=== PATIENT | female | born 1975 | race Caucasian/White ===

== ENCOUNTER 2022-09-22 07:42 | Inpatient (IN) ==
[2022-09-22] MEDS ORDERED: HYDROmorphone INJ 0.5 MG/0.5 ML SYR IV STA ×2 (08:17→09:31)
[2022-09-22] MEDS ORDERED: ONDANSETRON INJ 2 MG/ML 2 ML VIAL IV STA (08:17)
[2022-09-22] MEDS ORDERED: DEXAMETHASONE SOD INJ 4 MG/ML VIAL IV STA (08:17)
[2022-09-22] MEDS ORDERED: CYCLOBENZAPRINE HCL 10 MG TAB PO STA (09:31)
--- NOTE | 2022-09-22 09:44 | Magnetic Resonance Report ---
MR lumbar spine wo con CLINICAL HISTORY: lumbar radic, perineal numbness, urinary retention TECHNIQUE: Multiplanar sequences through the lumbar spine were obtained, without intravenous contrast . Comparison: None available at the time of this dictation. FINDINGS: The alignment is anatomical. L1-L2: No significant abnormality. L2-L3: No significant abnormality. L3-L4: No significant abnormality. L4-L5: No significant abnormality. L5-S1: There is a large left-sided disc extrusion with severe left neuroforaminal stenosis. The spinal ligaments are intact, without evidence of disruption or abnormal signal intensity. The spi nal cord is normal in signal intensity and there is no evidence of cord contusion. There is no eviden ce of an extradural, intradural, extramedullary or intramedullary lesion. Atrophic appearance of the left kidney is noted. IMPRESSION: Left disc extrusion at L5-S1 with severe left neural foraminal stenosis. ACT 112: Negative or not required by law. Electronically signed by: Urban Looney M.D. 09/22/2022 9:41 AM
--- NOTE | 2022-09-22 11:15 | Emergency Department Note ---
Impression & Plan Lumbar disc herniation with radiculopathy, DM type 2 (diabetes mellitus, type 2), Acute urinary retention, Saddle anesthesia ED Provider Note CHIEF COMPLAINT: Back pain HISTORY OF PRESENT ILLNESS: This 47-year-old female patient with a history of lumbar disc herniation presents to the emergency department with complaints of left leg pain that is worse than usual with saddle anesthesia. Patient states she had an MRI done 2 months ago with [facility] and was told she has an L5-S1 disc herniation. Over the weekend her pain changed significantly and the saddle anesthesia is new. She denies any new injuries or falls. She states she had a steroid epidural injection recently that helped her pain significantly for 2 weeks. Currently it is worse than ever. She does have increased pain with ambulation, she thinks the leg is weak but is limited mostly by pain. She denies any bowel or bladder incontinence but states it was very difficult to urinate this morning. REVIEW OF SYSTEMS: A review of systems was performed with positives and pertinent negatives listed in the history of present illness. 10 systems were reviewed and are otherwise negative. ALLERGIES: see below MEDICATIONS: see below PMH: see below SOCIAL HISTORY: see below DDx: Musculoskeletal, disc herniation, fracture, metastatic disease, cord compression, discitis, sciatica, cauda equina, infection, aortic disease, renal colic, gastrointestinal, as well as other pathologies. PHYSICAL EXAM: Vital signs reviewed. General: Well-appearing 47 yo female, in significant distress. HEENT: No scleral icterus, PERRLA, neck supple. Atraumatic. Cardiovascular: Regular rate and rhythm, no extra sounds. Pulmonary: Clear to auscultation bilaterally, normal work of breathing. Abdomen: Soft, nontender, nondistended, positive bowel sounds. Musculoskeletal: Atraumatic, no peripheral edema. Neurologic: Patient awake alert and oriented x 3, speech is clear. Diminished left straight leg raise secondary to pain. Pain in the left back with right leg raise. 2+ DTRs at the patella bilaterally Skin: Warm, dry, no rash EMERGENCY DEPARTMENT COURSE/MDM: patient was evaluated and appeared to be in significant discomfort. Patient was lying on her left side with her right leg folded over top. External medical records were reviewed including MRI from the [facility]. Due to the patient's significant discomfort, she was medicated with IV Dilaudid and IV dexamethasone. Patient was given 10 mg of Flexeril. Repeat MRI of the lumbar sacral spine was performed and reveals left disc extrusion at L5-S1 with severe left neural foraminal stenosis. Due to the patient's urinary retention and saddle anesthesia, Cabrera catheter was placed. Patient's case was discussed with the hospitalist service for pain control and orthopedic spine consult. Patient was made aware of the plan and agreed. She d id receive several doses of IV Dilaudid for additional pain. She feels comfortable with the plan for admission. MONITORING: An order for cardiac monitoring was placed and the patient is noted to be in a NSR at 84 beats per minute. RADIOLOGY: see below DISPOSITION: Admission Past Med/Surg History Medical History DM type 2 (diabetes mellitus, type 2) GERD (gastroesophageal reflux disease) Surgical History History of cholecystectomy History of hysterectomy History of lumbar discectomy Family History Other Family history non-contributory Social History Smoking Status: Current every day smoker Tobacco Type: E-cigarettes / Vaping Second Hand Exposure: No; Do You Dip or Chew Tobacco: No; Tobacco Cessation Education Requested by Patient: No Hx Alcohol Use: Yes Hx Substance Use: No Preferred Language: Yi Communication Ability: Effective [employer] Required: No Beliefs That Will Affect Care: None Current Living Situation: Spouse Current Living Situation Comment: 2 kids and Other Information That Helps Us Care for You: No Feels Safe at Home: Yes Safety Concerns: Feels Safe At This Time Allergies Allergies Allergy/AdvReac Type Severity Reaction Status Date / Time betamethasone Allergy Redness of Verified 09/22/22 16:34 Skin Home Meds Home Medications Medication Instructions Recorded Confirmed atorvastatin 40 mg tablet 40 mg PO DAILY 09/22/22 09/22/22 cyclobenzaprine 5 mg tablet See Rx Instructions .Route .COMPLEX 09/22/22 09/22/22 esomeprazole magnesium 40 mg 40 mg PO DAILY 09/22/22 09/22/22 capsule,delayed release gabapentin 400 mg capsule 400 mg PO TID 09/22/22 09/22/22 ibuprofen 800 mg tablet 800 mg PO DAILY PRN Pain 09/22/22 09/22/22 metformin 500 mg tablet,extended 500 mg PO QAM 09/22/22 09/22/22 release 24 hr oxycodone-acetaminophen 5 mg-325 1 tab PO Q8H PRN Severe Pain 09/22/22 09/22/22 mg tablet (Scale Score 7-10) semaglutide 1 mg/dose (4 mg/3 mL) 1 mg subcut WK 09/22/22 09/22/22 subcutaneous pen injector (Ozempic) Results & Data (ED) Vital Signs Vital Signs - 24 hr 09/22/22 07:47 09/22/22 09:45 09/22/22 13:16 Temperature 36.7 C Temperature Source Temporal Artery Scan Pulse Rate 63 Pulse Rate [Finger] 84 96 H Respiratory Rate 20 18 20 Respiratory Effort / Characteristics Non-Labored Respiratory Depth Normal Respiratory Pattern Regular Blood Pressure 159/109 H Blood Pressure [Right Arm] 114/68 115/73 Blood Pressure Mean 125 Blood Pressure Mean [Right Arm] 83 87 Blood Pressure Position Sitting Blood Pressure Position [Right Arm] Lying Lying Pulse Oximetry 100 97 97 Oxygen Delivery Method Room Air Room Air Room Air Sepsis Recent Fever Within 48 Hours No Sepsis New/Unexplained Change in Mental Status No Sepsis Action Taken by Nursing No Action Required Home Medications Current Medication List: was personally reviewed by me Laboratory Data Attestation: I reviewed the patient's lab results. 09/22/22 08:15 09/22/22 08:15 Lab Results 09/22/22 09/22/22 09/22/22 Range/Units 08:15 08:15 13:00 WBC 7.20 (4.8-10.8) K/ul RBC 4.70 (4.20-5.40) M/uL Hgb 15.1 (12.0-16.0) g/dl Hct 41.2 (37.0-47.0) % MCV 87.7 (80.0-100.0) fL MCH 32.1 (25.0-34.0) pg MCHC 36.7 H (32.0-36.0) g/dL RDW Std Deviation 35.7 L (36.4-46.3) fL RDW Coeff of Caio 11.1 L (11.5-14.5) % Plt Count 283 (130-400) K/uL MPV 10.2 (9.4-12.4) fL Sodium 134 L (136-145) mmol/L Potassium 3.9 (3.5-5.1) mmol/L Chloride 100 (98-107) mmol/L Carbon Dioxide 27 (21-32) mmol/L Anion Gap 7 (3-11) BUN 12 (6-23) mg/dl Creatinine 0.69 (0.6-1.2) mg/dl Est Cr Clr Drug Dosing 100.6 ml/min Est GFR ( Amer) 119.3 ml/min Est GFR (Non-Af Amer) 102.9 ml/min BUN/Creatinine Ratio 17.4 (10-20) Glucose 205 H (70-99(Fasting)) mg/dl Calcium 8.9 (8.6-10.3) mg/dl SARS-CoV-2, RNA, NAAT NEGATIVE (NEGATIVE) Administered Medications Acetaminophen (Acetaminophen 500 Mg Tab) 1,000 mg PO Q8H [facility] Stop: 10/22/22 15:21 Last Admin: 09/22/22 15:37 Dose: 1,000 mg Documented By: ESE Diazepam (Diazepam 2 Mg Tablet) 2 mg PO Q8H [facility] Stop: 10/22/22 16:44 Last Admin: 09/22/22 17:46 Dose: 2 mg Documented By: ESE Docusate Sodium (Docusate Sodium 100 Mg Cap) 100 mg PO BID [facility] Stop: 10/22/22 20:59 Last Admin: 09/22/22 20:46 Dose: Not Given Documented By: EKF Gabapentin (Gabapentin 400 Mg Cap) 400 mg PO TID [facility] Stop: 10/22/22 15:21 Last Admin: 09/22/22 20:47 Dose: 400 mg Documented By: Admin: 09/22/22 17:56 Dose: 400 mg Documented By: ESE Hydromorphone HCl (Hydromorphone Inj 0.5 Mg/0.5 Ml Syr) 0.5 mg IV Q6H PRN PRN Reason: Pain (6,7,8,9,10) Stop: 10/06/22 15:21 Last Admin: 09/22/22 16:05 Dose: 0.5 mg Documented By: ESE Insulin Aspart (Insulin Aspart Per Unit Charge) 0 units SC ACHS [facility] Stop: 10/22/22 16:29 Last Admin: 09/22/22 17:50 Dose: 5 units Documented By: ESE Co-signed By: NIR Oxycodone HCl (Oxycodone Hcl Ir 5 Mg Tab (Immediate Release)) 5 mg PO Q4H PRN PRN Reason: MODERATE Pain (4,5,6) & Pre PT Stop: 10/06/22 15:21 Last Admin: 09/22/22 20:47 Dose: 5 mg Documented By: Admin: 09/22/22 15:43 Dose: 5 mg Documented By: AAJude Discontinued Medications Cyclobenzaprine HCl (Cyclobenzaprine Hcl 10 Mg Tab) 10 mg PO NOW STA Stop: 09/22/22 09:32 Last Admin: 09/22/22 10:28 Dose: 10 mg Documented By: QGV Dexamethasone (Dexamethasone Sod Inj 4 Mg/Ml Vial) 10 mg IV NOW STA Stop: 09/22/22 08:18 Last Admin: 09/22/22 08:27 Dose: 10 mg Documented By: QGV Hydromorphone HCl (Hydromorphone Inj 0.5 Mg/0.5 Ml Syr) 0.5 mg IV NOW STA Stop: 09/22/22 08:18 Last Admin: 09/22/22 08:28 Dose: 0.5 mg Documented By: QGV Hydromorphone HCl (Hydromorphone Inj 0.5 Mg/0.5 Ml Syr) 0.5 mg IV NOW STA Stop: 09/22/22 09:32 Last Admin: 09/22/22 09:38 Dose: 0.5 mg Documented By: QGV Hydromorphone HCl (Hydromorphone Inj 0.5 Mg/0.5 Ml Syr) 0.5 mg IV Q1H PRN PRN Reason: Pain Stop: 10/06/22 11:30 Last Admin: 09/22/22 13:18 Dose: 0.5 mg Documented By: QGV Ondansetron HCl (Ondansetron Inj 2 Mg/Ml 2 Ml Vial) 4 mg IV NOW STA Stop: 09/22/22 08:18 Last Admin: 09/22/22 08:28 Dose: 4 mg Documented By: QGV Imaging Data Radiologist's Impression: Lumbar Spine MRI 09/22/22 08:31 MR lumbar spine wo con CLINICAL HISTORY: lumbar radic, perineal numbness, urinary retention TECHNIQUE: Multiplanar sequences through the lumbar spine were obtained, without intravenous contrast. Comparison: None available at the time of this dictation. FINDINGS: The alignment is anatomical. L1-L2: No significant abnormality. L2-L3: No significant abnormality. L3-L4: No significant abnormality. L4-L5: No significant abnormality. L5-S1: There is a large left-sided disc extrusion with severe left neuroforaminal stenosis. The spinal ligaments are intact, without evidence of disruption or abnormal signal intensity. The spinal cord is normal in signal intensity and there is no evidence of cord contusion. There is no evidence of an extradural, intradural, extramedullary or intramedullary lesion. Atrophic appearance of the left kidney is noted. IMPRESSION: Left disc extrusion at L5-S1 with severe left neural foraminal stenosis. ACT 112: Negative or not required by law. Electronically signed by: Urban Looney M.D. 09/22/2022 9:41 AM Discharge Plan Visit Data Chief Complaint: Leg Injury/Pain Stated Complaint: has Ruptured Disk, leg pain, pain into groin ED Provider: Ana Rosa Haider Discharge Problem: Lumbar disc herniation with radiculopathy, DM type 2 (diabetes mellitus, type 2), Acute urinary retention, Saddle anesthesia Patient Disposition: Admitted As Inpatient Discharge Instructions Interventions: ED Discharge Assessment Last Done: 09/22/22 14:46
[2022-09-22] MEDS ORDERED: HYDROmorphone INJ 0.5 MG/0.5 ML SYR IV PRN (11:31)
[2022-09-22 14:18] LABS: BUN Creatinine Ratio 17.4 (10-20); Calcium 8.9 mg/dl (8.6-10.3); Creatinine Clr Calc Pharmacy 100.6 ml/min; Est GFR (African American) 119.3 ml/min; Est GFR (Non-African American) 102.9 ml/min; Potassium 3.9 mmol/L (3.5-5.1)
[2022-09-22 14:29] LABS: Hematocrit (blood only) 41.2 % (37.0-47.0); Hemoglobin 15.1 g/dl (12.0-16.0); Mean Corpuscular Hemoglobin 32.1 pg (25.0-34.0); Mean Corpuscular Hgb Conc 36.7 g/dL (32.0-36.0); Mean Corpuscular Volume 87.7 fL (80.0-100.0); Mean Platelet Volume 10.2 fL (9.4-12.4); Platelet Count 283 K/uL (130-400); RDW Coefficient of Variation 11.1 % (11.5-14.5); RDW Standard Deviation 35.7 fL (36.4-46.3)
--- NOTE | 2022-09-22 15:05 | History & Physical Report ---
Date of Service September 22, 2022 Assessment & Plan (1) Herniated disc: Plan: Admit to [facility] Patient presenting from home with reports of increasing low back pain with radiation into the left leg with associated left leg weakness and urinary retention. Lumbar spine MRI shows Left disc extrusion at L5-S1 with severe left neural foraminal stenosis. Pain control with bowel regimen. Scheduled Tylenol and Valium, as needed oxycodone and Dilaudid for breakthrough pain. Spine Ortho consult, case discussed with Dr. Lopez (2) DM type 2 (diabetes mellitus, type 2): Plan: Hgb A1c 8.2 05/2022 Hold home Ozempic and metformin, utilize NovoLog per protocol while hospitalized (3) GERD (gastroesophageal reflux disease): Plan: Continue PPI DVT PROPHYLAXIS SCDs in the event patient needs invasive procedure Patient seen in collaboration with Dr. Santiago. I spent a total of 75 minutes coordinating, documenting, and providing care for this patient excluding time spent in the performance of separately billed services. This included personally reviewing all current laboratories and imaging studies, medication reconciliation, outpatient chart review, and discussion with specialists. History of Present Illness Chief Complaint: Back pain, left leg weakness Primary Care Provider: Radha Wheat MD 47-year-old female with PMH DM type II, GERD, lumbar discectomy in 2016, and other problems listed below who presents to the ED for evaluation of back pain and left leg weakness. History obtained from patient and review of outpatient PCP and pain management records. Patient reports she fell down the stairs in February 2022 and developed low back pain. Patient states she was seeing a chiropractor for a couple of months with relief in the pain. Pain then became an relief with wound care technician and patient began seeing pain management. Patient had an MRI on 08/09/2022 that showed disc extrusion at L5-S1 compressing the descending left S1 nerve roots. Patient had a TFESI (transforaminal lumbar epidural steroid injection) on 08/22/22. Patient reports relief of pain for a couple of weeks however it is since returned. Patient reports pain radiates down the posterior aspect of her left leg. Left leg feels extremely weak to the point she goes up and down stairs in a seated position. Recently pain has been radiating to the " saddle" region and over to the right hip. A few days ago, patient noted that she was having difficulty emptying her bladder. She has not had a bowel movement in 4 days. Patient denies fevers and chills. No chest pain or shortness of breath. Denies lightheadedness, dizziness, diaphoresis, syncopal events. No abdominal pain, nausea, vomiting, diarrhea. In the ED, lumbar spine MRI shows left disc extrusion at L5-S1 with severe left neural foraminal stenosis. Patient received cyclobenzaprine, IV dexamethasone, IV Dilaudid, IV Zofran. Home Medications Medication Instructions Recorded Confirmed Type atorvastatin 40 mg tablet 40 mg PO DAILY 09/22/22 09/22/22 History cyclobenzaprine 5 mg tablet See Rx Instructions .Route .COMPLEX 09/22/22 09/22/22 History esomeprazole magnesium 40 mg 40 mg PO DAILY 09/22/22 09/22/22 History capsule,delayed release gabapentin 400 mg capsule 400 mg PO TID 09/22/22 09/22/22 History ibuprofen 800 mg tablet 800 mg PO DAILY PRN Pain 09/22/22 09/22/22 History metformin 500 mg tablet,extended 500 mg PO QAM 09/22/22 09/22/22 History release 24 hr oxycodone-acetaminophen 5 mg-325 1 tab PO Q8H PRN Severe Pain 09/22/22 09/22/22 History mg tablet (Scale Score 7-10) semaglutide 1 mg/dose (4 mg/3 mL) 1 mg subcut WK 09/22/22 09/22/22 History subcutaneous pen injector (Ozempic) Past Med/Surg History Medical History DM type 2 (diabetes mellitus, type 2) GERD (gastroesophageal reflux disease) Surgical History History of cholecystectomy History of hysterectomy History of lumbar discectomy Family History Other Family history non-contributory Social History Smoking Status: Current every day smoker Tobacco Type: E-cigarettes / Vaping Feels Safe at Home: Yes Review of Systems Review of Systems: ROS per HPI, all other systems reviewed and negative Physical Exam Constitutional: WD/WN, vitals as above Eyes: PERRL, conjunctivae normal, anicteric sclerae ENMT: external ear and nose normal, oropharynx normal Respiratory: normal respiratory effort, lungs clear to auscultation Cardiovascular: Rate/Rhythm: regular rate and regular rhythm Vessels: normal peripheral pulses Extremities: no edema Gastrointestinal (Abdomen): normal bowel sounds, soft, nontender, no hepatosplenomegaly Musculoskeletal: LLE weakness Skin: no rashes, warm and dry Neurologic: PERRL, EOMI, accommodation nl, no face palsy, no dysarthria Psychiatric: A+Ox3, euthymic affect Genitourinary: Cabrera catheter in place draining clear yellow urine. Results & Data Results & Data Vital Signs (Past 12 Hours) Vital Signs Temp Pulse Pulse Resp BP BP Pulse Ox 09/22/22 13:16 96 H 20 115/73 97 09/22/22 09:45 84 18 114/68 97 09/22/22 07:47 36.7 C 63 20 159/109 H 100 O2 Del Method 09/22/22 13:16 Room Air 09/22/22 09:45 Room Air 09/22/22 07:47 Room Air Laboratory Results Short CBC 09/22/22 Range/Units 08:15 WBC 7.20 (4.8-10.8) K/ul Hgb 15.1 (12.0-16.0) g/dl Hct 41.2 (37.0-47.0) % Plt Count 283 (130-400) K/uL BMP 09/22/22 08:15 Sodium 134 L Potassium 3.9 Chloride 100 Carbon Dioxide 27 BUN 12 Creatinine 0.69 Glucose 205 H Calcium 8.9 Diagnostic Findings Lumbar Spine MRI 09/22/22 08:31 MR lumbar spine wo con CLINICAL HISTORY: lumbar radic, perineal numbness, urinary retention TECHNIQUE: Multiplanar sequences through the lumbar spine were obtained, without intravenous contrast. Comparison: None available at the time of this dictation. FINDINGS: The alignment is anatomical. L1-L2: No significant abnormality. L2-L3: No significant abnormality. L3-L4: No significant abnormality. L4-L5: No significant abnormality. L5-S1: There is a large left-sided disc extrusion with severe left neuroforaminal stenosis. The spinal ligaments are intact, without evidence of disruption or abnormal signal intensity. The spinal cord is normal in signal intensity and there is no evidence of cord contusion. There is no evidence of an extradural, intradural, extramedullary or intramedullary lesion. Atrophic appearance of the left kidney is noted. IMPRESSION: Left disc extrusion at L5-S1 with severe left neural foraminal stenosis. ACT 112: Negative or not required by law. Electronically signed by: Urban Looney M.D. 09/22/2022 9:41 AM Code Status & VTE Plan VTE Prophylaxis Plan VTE Prophylaxis will be ordered: Yes Supervising Physician Co-Signing Physician Notes Reviewed notes, outpatient records, labs, medication, coordinating, documenting and providing care for this patient excluding time spent in the performance of separately billed services. Neuro: Awake alert, mild distress HEENT: normocephalic CV: S1/S2, +, no murmurs Resp: Air entry present bilaterally, no crackles GI: Abdomen soft non tender Musculoskeletal:left lower extremity weakness Skin: (-) rashes , (-) erythema. Psych: normal affect Laboratory Results WBC 7.20 K/ul (4.8-10.8) 09/22/22 08:15 RBC 4.70 M/uL (4.20-5.40) 09/22/22 08:15 Hgb 15.1 g/dl (12.0-16.0) 09/22/22 08:15 Hct 41.2 % (37.0-47.0) 09/22/22 08:15 MCV 87.7 fL (80.0-100.0) 09/22/22 08:15 MCH 32.1 pg (25.0-34.0) 09/22/22 08:15 MCHC 36.7 g/dL (32.0-36.0) H 09/22/22 08:15 RDW Std Deviation 35.7 fL (36.4-46.3) L 09/22/22 08:15 RDW Coeff of Caio 11.1 % (11.5-14.5) L 09/22/22 08:15 Plt Count 283 K/uL (130-400) 09/22/22 08:15 MPV 10.2 fL (9.4-12.4) 09/22/22 08:15 Sodium 134 mmol/L (136-145) L 09/22/22 08:15 Potassium 3.9 mmol/L (3.5-5.1) 09/22/22 08:15 Chloride 100 mmol/L (98-107) 09/22/22 08:15 Carbon Dioxide 27 mmol/L (21-32) 09/22/22 08:15 Anion Gap 7 (3-11) 09/22/22 08:15 BUN 12 mg/dl (6-23) 09/22/22 08:15 Creatinine 0.69 mg/dl (0.6-1.2) 09/22/22 08:15 Est Cr Clr Drug Dosing 100.6 ml/min 09/22/22 08:15 Est GFR ( Amer) 119.3 ml/min 09/22/22 08:15 Est GFR (Non-Af Amer) 102.9 ml/min 09/22/22 08:15 BUN/Creatinine Ratio 17.4 (10-20) 09/22/22 08:15 Glucose 205 mg/dl (70-99(Fasting)) H 09/22/22 08:15 Calcium 8.9 mg/dl (8.6-10.3) 09/22/22 08:15 SARS-CoV-2, RNA, NAAT NEGATIVE (NEGATIVE) 09/22/22 13:00 Impressions Lumbar Spine MRI 09/22/22 08:31 MR lumbar spine wo con CLINICAL HISTORY: lumbar radic, perineal numbness, urinary retention TECHNIQUE: Multiplanar sequences through the lumbar spine were obtained, without intravenous contrast. Comparison: None available at the time of this dictation. FINDINGS: The alignment is anatomical. L1-L2: No significant abnormality. L2-L3: No significant abnormality. L3-L4: No significant abnormality. L4-L5: No significant abnormality. L5-S1: There is a large left-sided disc extrusion with severe left neuroforaminal stenosis. The spinal ligaments are intact, without evidence of disruption or abnormal signal intensity. The spinal cord is normal in signal intensity and there is no evidence of cord contusion. There is no evidence of an extradural, intradural, extramedullary or intramedullary lesion. Atrophic appearance of the left kidney is noted. IMPRESSION: Left disc extrusion at L5-S1 with severe left neural foraminal stenosis. ACT 112: Negative or not required by law. Electronically signed by: Urban Looney M.D. 09/22/2022 9:41 AM Abnormal Labs 09/22/22 09/22/22 08:15 08:15 MCHC 36.7 H RDW Std Deviation 35.7 L RDW Coeff of Caio 11.1 L Sodium 134 L Glucose 205 H
--- NOTE | 2022-09-22 15:18 | Orthopedic Consultation ---
Date of Consultation September 22, 2022 Assessment & Plan (1) Lumbar disc herniation with radiculopathy: MRI lumbar spine demonstrates evidence of a massive disc herniation L5-S1 on the left with extension into the neuroforamen. There is marked encroachment of both the traversing and exiting nerve root on the left side. There is marked evidence of disc base collapse at this level. There is evidence of previous laminotomy defect on the right. Assessment lumbar disc herniation with herniated free fragment with radiculopathy and progressive motor deficit. Plan at this time at length bimal with the patient and her reviewing MRI personally with them and explaining possible treatment plan. In light of her severe pain progressive motor deficit surgery would be reasonable and performed in an urgent manner. Surgical require lumbar laminectomy L5-S1 with possible fusion. Risk benefits pros cons alternatives in detail. Risk include but not limited to anesthesia blindness stroke paralysis nerve damage blood loss requiring transfusion infection requiring reoperation benefits hopefully marked improvement of her radiculopathy and in time improvement of her motor and sensory deficits. This time make her n.p.o. after midnight we will plan for surgery tomorrow. History of Present Illness Reason for Consultation: Severe left leg pain with weakness History of Present Illness This is a 47-year-old female who presents with a marked plan status over the past several days. She does have a history of a lumbar laminotomy at L5-S1 the right in 2016. She done very well until this past fall when she began experiencing left sciatica. Treated managing this with exercise and care trainer. She has recently undergone an injection that did provide a few weeks of relief. Unfortunately is weak and the pain has returned in severity is intense. Involves left buttock posterior lateral left thigh below the knee into the foot. She describes total numbness in the left foot. Is marked strength deficits. The right lower extremities asymptomatic. She is struggling with urinary retention. She denies any specific trauma fall or event. Home Medications Medication Instructions Recorded Confirmed Type atorvastatin 40 mg tablet 40 mg PO DAILY 09/22/22 09/22/22 History cyclobenzaprine 5 mg tablet See Rx Instructions .Route .COMPLEX 09/22/22 09/22/22 History esomeprazole magnesium 40 mg 40 mg PO DAILY 09/22/22 09/22/22 History capsule,delayed release gabapentin 400 mg capsule 400 mg PO TID 09/22/22 09/22/22 History ibuprofen 800 mg tablet 800 mg PO DAILY PRN Pain 09/22/22 09/22/22 History metformin 500 mg tablet,extended 500 mg PO QAM 09/22/22 09/22/22 History release 24 hr oxycodone-acetaminophen 5 mg-325 1 tab PO Q8H PRN Severe Pain 09/22/22 09/22/22 History mg tablet (Scale Score 7-10) semaglutide 1 mg/dose (4 mg/3 mL) 1 mg subcut WK 09/22/22 09/22/22 History subcutaneous pen injector (Ozempic) Patient History Medical History DM type 2 (diabetes mellitus, type 2) GERD (gastroesophageal reflux disease) Surgical History History of cholecystectomy History of hysterectomy History of lumbar discectomy Family History Other Family history non-contributory Social History Smoking Status: Current every day smoker Tobacco Type: E-cigarettes / Vaping Feels Safe at Home: Yes Physical Exam Physical Exam: Exam patient is most comfortable in the position. She is cooperative however. She exhibits tension signs straight leg raising on the left negative on the right. She has marked strength deficits at a 3/5 left dorsiflexion extensor houses longus compared to 5/5 on the right. Quadriceps are symmetric. There is definite sensory deficits to the left lower extremity compared to the right. DTR reflexes markedly diminished. Results & Data Vital Signs (Past 12 Hours) Vital Signs Temp Pulse Pulse Resp BP BP Pulse Ox 09/22/22 13:16 96 H 20 115/73 97 09/22/22 09:45 84 18 114/68 97 09/22/22 07:47 36.7 C 63 20 159/109 H 100 O2 Del Method 09/22/22 13:16 Room Air 09/22/22 09:45 Room Air 09/22/22 07:47 Room Air
[2022-09-22] MEDS ORDERED: CARBOHYDRATES FOR HYPOGLYCEMIA PO PRN (15:22)
[2022-09-22] MEDS ORDERED: GLUCOSE 40% GEL 15 GM TUBE PO PRN (15:22)
[2022-09-22] MEDS ORDERED: GLUCOSE 10 TAB/TUBE PO PRN (15:22)
[2022-09-22] MEDS ORDERED: GLUCAGON FOR INJ 1 MG VIAL SQ PRN (15:22)
[2022-09-22] MEDS ORDERED: DEXTROSE 50% 50 ML SYRINGE IV PRN (15:22)
[2022-09-22] MEDS ORDERED: ONDANSETRON INJ 2 MG/ML 2 ML VIAL IV PRN (15:22)
[2022-09-22] MEDS: ACETAMINOPHEN 500 MG TAB PO SCH (15:37)
[2022-09-22] MEDS: oxyCODONE HCL IR 5 MG TAB (IMMEDIATE RELEASE) PO PRN ×2 (15:43→20:47)
[2022-09-22] MEDS: HYDROmorphone INJ 0.5 MG/0.5 ML SYR IV PRN ×2 (16:05→22:02)
[2022-09-22] MEDS: diazePAM 2 MG TABLET PO SCH (17:46)
[2022-09-22] MEDS: INSULIN ASPART PER UNIT CHARGE SC SCH ×2 (17:50→22:11)
[2022-09-22] MEDS: GABAPENTIN 400 MG CAP PO SCH ×2 (17:56→20:47)
[2022-09-22] MEDS: DOCUSATE SODIUM 100 MG CAP PO SCH (20:46)
--- NOTE | 2022-09-22 20:46 | XRay Report ---
SINGLE VIEW CHEST CLINICAL HISTORY: Preoperative examination FINDINGS: An AP, portable, semierect chest radiograph is compared to study dated 01/19/2022. The cardio mediastinal silhouette is unremarkable. The lungs and pleural spaces are clear. No pneumothorax is se en. The bony thorax is grossly intact. Cholecystectomy clips are seen in the right upper quadrant. IMPRESSION: No active disease in the chest. ACT 112: Negative or not required by law. Electronically signed by: Jose Weber M.D. 09/22/2022 8:44 PM
[2022-09-23] MEDS: ACETAMINOPHEN 500 MG TAB PO SCH ×3 (00:18→16:37)
[2022-09-23] MEDS: diazePAM 2 MG TABLET PO SCH ×3 (00:18→16:48)
[2022-09-23] MEDS: oxyCODONE HCL IR 5 MG TAB (IMMEDIATE RELEASE) PO PRN ×3 (03:00→21:36)
[2022-09-23] MEDS: HYDROmorphone INJ 0.5 MG/0.5 ML SYR IV PRN (04:23)
[2022-09-23] MEDS ORDERED: oxyCODONE HCL IR 5 MG TAB (IMMEDIATE RELEASE) PO PRN ×2 (06:30→14:29)
[2022-09-23] MEDS ORDERED: oxyCODONE HCL IR 5 MG TAB (IMMEDIATE RELEASE) PO STA (06:31)
[2022-09-23] MEDS ORDERED: HYDROmorphone INJ 0.5 MG/0.5 ML SYR IV PRN ×2 (06:31→16:27)
[2022-09-23] MEDS ORDERED: NSS + 20MEQ KCL 20 MEQ/1,000 ML BAG IV ONE (06:33)
[2022-09-23] MEDS: HYDROmorphone INJ 0.5 MG/0.5 ML SYR IV STA ×2 (06:40→07:08)
[2022-09-23] MEDS ORDERED: Nursing to Pharmacy Communication SCH ×2 (07:00→16:45)
[2022-09-23] MEDS: ATORVASTATIN 40 MG TAB PO SCH (08:19)
[2022-09-23] MEDS: GABAPENTIN 400 MG CAP PO SCH ×3 (08:19→21:36)
[2022-09-23] MEDS: PANTOprazole 40 MG TAB PO SCH (08:19)
[2022-09-23] MEDS: DOCUSATE SODIUM 100 MG CAP PO SCH ×2 (08:20→21:37)
[2022-09-23] MEDS: INSULIN ASPART PER UNIT CHARGE SC SCH ×4 (08:21→21:46)
[2022-09-23 08:33] LABS: Hematocrit (blood only) 38.6 % (37.0-47.0); Hemoglobin 14.3 g/dl (12.0-16.0); Mean Corpuscular Hemoglobin 32.4 pg (25.0-34.0); Mean Corpuscular Volume 87.5 fL (80.0-100.0); Mean Platelet Volume 9.5 fL (9.4-12.4); Platelet Count 274 K/uL (130-400); RDW Coefficient of Variation 10.9 % (11.5-14.5); Red Blood Count 4.41 M/uL (4.20-5.40); White Blood Count 12.36 K/ul (4.8-10.8)
[2022-09-23 08:45] LABS: Calcium 8.5 mg/dl (8.6-10.3); Creatinine Clr Calc Pharmacy 133.5 ml/min; Est GFR (African American) 130.9 ml/min; Potassium 3.9 mmol/L (3.5-5.1)
--- NOTE | 2022-09-23 08:51 | Hospitalist Progress Note ---
Date of Service September 23, 2022 Assessment & Plan (1) Herniated disc: Plan: Admit to [facility] Patient presenting from home with reports of increasing low back pain with radiation into the left leg with associated left leg weakness and urinary retention. Lumbar spine MRI shows Left disc extrusion at L5-S1 with severe left neural foraminal stenosis. Pain control with bowel regimen. Scheduled Tylenol and Valium, as needed oxycodone and Dilaudid for breakthrough pain. Spine Ortho consult, case discussed with Dr. Lopez (2) DM type 2 (diabetes mellitus, type 2): Plan: Hgb A1c 8.2 05/2022 Hold home Ozempic and metformin, utilize NovoLog per protocol while hospitalized (3) GERD (gastroesophageal reflux disease): Plan: Continue PPI DVT PROPHYLAXIS SCDs in the event patient needs invasive procedure Patient seen in collaboration with Dr. Santiago. I spent a total of 75 minutes coordinating, documenting, and providing care for this patient excluding time spent in the performance of separately billed services. This included personally reviewing all current laboratories and imaging studies, medication reconciliation, outpatient chart review, and discussion with specialists. Admission and Anticipated Discharge Date Admission Date: September 22, 2022 Results & Data Results & Data Vital Signs (Past 12 Hours) Vital Signs Temp Pulse Resp BP Pulse Ox O2 Del Method 09/23/22 07:22 36.8 C 85 14 120/78 97 Room Air 09/22/22 21:21 36.6 C 88 18 109/66 98 Room Air Laboratory Results Short CBC 09/22/22 09/23/22 Range/Units 08:15 07:58 WBC 7.20 12.36 H (4.8-10.8) K/ul Hgb 15.1 14.3 (12.0-16.0) g/dl Hct 41.2 38.6 (37.0-47.0) % Plt Count 283 274 (130-400) K/uL BMP 09/22/22 09/23/22 08:15 07:58 Sodium 134 L 136 Potassium 3.9 3.9 Chloride 100 103 Carbon Dioxide 27 27 BUN 12 13 Creatinine 0.69 0.52 L Glucose 205 H 169 H Calcium 8.9 8.5 L Medications Administered Current Inpatient Medications Acetaminophen (Acetaminophen 500 Mg Tab) 1,000 mg PO Q8H VERENA Stop: 10/22/22 15:21 Last Admin: 09/23/22 06:30 Dose: 1,000 mg Atorvastatin Calcium (Atorvastatin 40 Mg Tab) 40 mg PO DAILY VERENA Stop: 10/23/22 08:59 Last Admin: 09/23/22 08:19 Dose: 40 mg Dextrose (Dextrose 50% 50 Ml Syringe) 25 - 50 ml IV UD PRN; Protocol PRN Reason: Hypoglycemia Protocol Stop: 10/22/22 15:21 Diazepam (Diazepam 2 Mg Tablet) 2 mg PO Q8H VERENA Stop: 10/22/22 16:44 Last Admin: 09/23/22 08:19 Dose: 2 mg Docusate Sodium (Docusate Sodium 100 Mg Cap) 100 mg PO BID VERENA Stop: 10/22/22 20:59 Last Admin: 09/23/22 08:20 Dose: Not Given Gabapentin (Gabapentin 400 Mg Cap) 400 mg PO TID VERENA Stop: 10/22/22 15:21 Last Admin: 09/23/22 08:19 Dose: 400 mg Glucagon (Glucagon For Inj 1 Mg Vial) 1 mg SQ UD PRN; Protocol PRN Reason: Hypoglycemia Protocol Stop: 10/22/22 15:21 Glucose (Glucose 10 Tab/Tube) 4 - 8 tab PO UD PRN; Protocol PRN Reason: Hypoglycemia Treatment Stop: 10/22/22 15:21 Glucose (Glucose 40% Gel 15 Gm Tube) 15 - 30 gm PO UD PRN; Protocol PRN Reason: Hypoglycemia Protocol Stop: 10/22/22 15:21 Hydromorphone HCl (Hydromorphone Inj 0.5 Mg/0.5 Ml Syr) 0.5 mg IV Q4H PRN PRN Reason: Pain (6,7,8,9,10) Stop: 10/06/22 15:21 Potassium Chloride/Sodium Chloride (Normal Saline W/20 Meq Kcl) 20 meq in 1,000 mls @ 80 mls/hr IV .[id number] ONE; Protocol Stop: 09/23/22 19:02 Last Admin: 09/23/22 07:08 Dose: 80 mls/hr Insulin Aspart (Insulin Aspart Per Unit Charge) 0 units SC Q6 VERENA Stop: 10/23/22 06:59 Last Admin: 09/23/22 08:21 Dose: Not Given Miscellaneous (Carbohydrates For Hypoglycemia ) 15 - 30 gm PO UD PRN PRN Reason: Hypoglycemia Protocol Stop: 10/22/22 15:21 Ondansetron HCl (Ondansetron Inj 2 Mg/Ml 2 Ml Vial) 4 mg IV Q6H PRN PRN Reason: Nausea Stop: 10/22/22 15:21 Oxycodone HCl (Oxycodone Hcl Ir 5 Mg Tab (Immediate Release)) 5 - 10 mg PO QID PRN PRN Reason: Pain Stop: 10/07/22 06:29 Pantoprazole Sodium (Pantoprazole 40 Mg Tab) 40 mg PO DAILY VERENA; Protocol Stop: 10/23/22 08:59 Last Admin: 09/23/22 08:19 Dose: 40 mg Polyethylene Glycol (Polyethylene (Miralax) 17 Gm Pack) 17 gm PO DAILY VERENA Stop: 10/23/22 08:59 Last Admin: 09/23/22 08:20 Dose: Not Given
[2022-09-23] MEDS ORDERED: POLYETHYLENE (MIRALAX) 17 GM PACK PO SCH (09:00)
[2022-09-23 09:22] LABS: Estimated Average Glucose 197 mg/dl; Hemoglobin A1C 8.5 % (4.5-5.6)
[2022-09-23] MEDS ORDERED: INSULIN ASPART PER UNIT CHARGE SC SCH (12:00)
--- NOTE | 2022-09-23 12:29 | Anesthesiology Consultation ---
Date of Service September 23, 2022 Assessment & Plan Chart Review Chart Review: Acceptable Risk for Surgery and Patient NOT seen in Pre Admission Testing Consults Requested none ASA ASA2 Proposed Anesthesia Anesthesia Type: General History Surgery Operation Date: 09/23/22 13:30 Proposed Procedures p Lumbar Decompression Possible Fusion L5-S1 Spinal Cord Monitoring - Anton Lopez DO Height/Weight Height: 5 ft 8 in Weight: 70.4 kg Allergies Allergy/AdvReac Type Severity Reaction Status Date / Time betamethasone Allergy Redness of Verified 09/22/22 16:34 Skin Medications Home Medications Medication Instructions Recorded Confirmed Last Taken atorvastatin 40 mg tablet 40 mg PO DAILY 09/22/22 09/22/22 09/21/22 cyclobenzaprine 5 mg tablet See Rx Instructions .Route .COMPLEX 09/22/22 09/22/22 09/21/22 esomeprazole magnesium 40 mg 40 mg PO DAILY 09/22/22 09/22/22 09/21/22 capsule,delayed release gabapentin 400 mg capsule 400 mg PO TID 09/22/22 09/22/22 09/22/22 06:00 ibuprofen 800 mg tablet 800 mg PO DAILY PRN Pain 09/22/22 09/22/22 09/22/22 06:00 metformin 500 mg tablet,extended 500 mg PO QAM 09/22/22 09/22/22 09/21/22 release 24 hr oxycodone-acetaminophen 5 mg-325 1 tab PO Q8H PRN Severe Pain 09/22/22 09/22/22 09/22/22 mg tablet (Scale Score 7-10) semaglutide 1 mg/dose (4 mg/3 mL) 1 mg subcut WK 09/22/22 09/22/22 09/22/22 subcutaneous pen injector (Ozempic) Active Medications Generic Name Dose Route Start Last Admin Trade Name Freq PRN Reason Stop Dose Admin Acetaminophen 1,000 mg 09/22/22 15:22 09/23/22 06:30 Acetaminophen 500 Mg Tab PO 10/22/22 15:21 1,000 mg Q8H VERENA Administration Atorvastatin Calcium 40 mg 09/23/22 09:00 09/23/22 08:19 Atorvastatin 40 Mg Tab PO 10/23/22 08:59 40 mg DAILY VERENA Administration Diazepam 2 mg 09/22/22 16:45 09/23/22 08:19 Diazepam 2 Mg Tablet PO 10/22/22 16:44 2 mg Q8H VERENA Administration Docusate Sodium 100 mg 09/22/22 21:00 09/23/22 08:20 Docusate Sodium 100 Mg Cap PO 10/22/22 20:59 Not Given BID VERENA Gabapentin 400 mg 09/22/22 15:22 09/23/22 08:19 Gabapentin 400 Mg Cap PO 10/22/22 15:21 400 mg TID VERENA Administration Potassium Chloride/Sodium Chloride 20 meq in 1,000 mls @ 80 mls/hr 09/23/22 06:33 09/23/22 07:08 Normal Saline W/20 Meq Kcl IV 09/23/22 19:02 80 mls/hr .[id number] ONE Administration Protocol Insulin Aspart 0 units 09/23/22 07:00 09/23/22 08:21 Insulin Aspart Per Unit Charge SC 10/23/22 06:59 Not Given Q6 VERENA Oxycodone HCl 5 - 10 mg 09/23/22 06:30 09/23/22 11:38 Oxycodone Hcl Ir 5 Mg Tab (Immediate Release) PO 10/07/22 06:29 10 mg QID PRN Administration Pain Pantoprazole Sodium 40 mg 09/23/22 09:00 09/23/22 08:19 Pantoprazole 40 Mg Tab PO 10/23/22 08:59 40 mg DAILY VERENA Administration Protocol Polyethylene Glycol 17 gm 09/23/22 09:00 09/23/22 08:20 Polyethylene (Miralax) 17 Gm Pack PO 10/23/22 08:59 Not Given DAILY VERENA Past Medical History Medical History DM type 2 (diabetes mellitus, type 2) GERD (gastroesophageal reflux disease) Exercise / Class Metabolic Activity II 4-5 Yardwork/Stairs/Walk up hill Past Family History Family History Other Family history non-contributory Past Surgical History Surgical History History of cholecystectomy History of hysterectomy History of lumbar discectomy Past Anesthesia History No Hx of Anesthesia Complications and No Family Hx of Anesthesia Complications History of PONV No Hx of PONV and No Hx of Motion Sickness Social History Smoking Status: Current every day smoker tobacco type: e-cigarettes Do You Dip or Chew Tobacco: No Hx Alcohol Use: Yes alcohol intake frequency: holidays/special occasions only Hx Substance Use: No Physical Exam Vital Signs Last Vital Signs Temp 36.8 C 09/23/22 07:22 Pulse 85 09/23/22 07:22 Resp 14 09/23/22 07:22 BP 120/78 09/23/22 07:22 Pulse Ox 97 09/23/22 07:22 O2 Del Method Room Air 09/23/22 07:22 Testing Laboratory Results 09/23/22 07:58 09/23/22 07:58 Hemoglobin A1c 8.5 % (4.5-5.6) H 09/23/22 07:58 09/23/22 09/23/22 12:06 07:54 POC Glucose 158 H 164 H Electrocardiogram Findings: + NSR @ (@ 83;? anterior infarct,age ?) Chest X-Ray Date: 09/22/22 Findings: + NAD
[2022-09-23] MEDS ORDERED: NEOSTIGMINE METHYLSULFATE 1 MG/ML 10ML VIAL ONE (12:35)
[2022-09-23] MEDS ORDERED: LIDOCAINE 2% 2 ML VIAL/AMP(20MG/ML) INFIL ONE (12:35)
[2022-09-23] MEDS ORDERED: PROPOFOL IV EMULSION 10 MG/ML 20 ML VIAL IV ONE (12:35)
[2022-09-23] MEDS ORDERED: ONDANSETRON INJ 2 MG/ML 2 ML VIAL ONE ×2 (12:35→12:36)
[2022-09-23] MEDS ORDERED: GLYCOPYRROLATE 0.2 MG/ML VIAL ONE (12:35)
[2022-09-23] MEDS ORDERED: DEXAMETHASONE SOD INJ 4 MG/ML VIAL ONE (12:35)
[2022-09-23] MEDS ORDERED: MIDAZOLAM HCL 1 MG/ML 2ML VIAL ONE (12:35)
[2022-09-23] MEDS ORDERED: HYDROmorphone INJ 2 MG/ML SYR/VIAL ONE (12:36)
[2022-09-23] MEDS ORDERED: ROCURONIUM BROMIDE 10 MG/ML 5 ML VIAL IV ONE (12:36)
[2022-09-23] MEDS ORDERED: LARYING-O-JET KIT (LTA) ONE (12:36)
[2022-09-23] MEDS ORDERED: ceFAZolin 330 MG/ML 1 GM VIAL ONE ×2 (12:51→14:14)
[2022-09-23] MEDS ORDERED: BUPIVACAINE/EPINEPHRINE 0.25% 1:200,000 30 ML VIAL ONE (12:51)
[2022-09-23] MEDS ORDERED: ONDANSETRON INJ 2 MG/ML 2 ML VIAL IV PRN ×2 (13:25→16:27)
[2022-09-23] MEDS ORDERED: NALOXONE HCL 0.4 MG/1 ML VIAL/CARP IV PRN ×2 (13:25→16:27)
[2022-09-23] MEDS ORDERED: FLUMAZENIL 0.1 MG/1 ML 10 ML VIAL IV PRN (13:25)
[2022-09-23] MEDS ORDERED: PROMETHAZINE HCL 12.5 MG in SODIUM CHLORIDE 0.9% 50 ML IV PRN ×2 (13:25→16:27)
[2022-09-23] MEDS ORDERED: ePHEDrine sulfate 50 MG/ML AMP IV PRN (13:25)
[2022-09-23] MEDS ORDERED: ATROPINE SULFATE 0.1 MG/ML 10ML SYR IV PRN (13:25)
[2022-09-23] MEDS ORDERED: fentaNYL citrate PF 100 MCG/2 ML VIAL IV PRN (13:25)
--- NOTE | 2022-09-23 13:51 | History & Physical Bridge Note ---
Date of Service September 23, 2022 History & Physical Bridge Note I have examined the patient, reviewed the History & Physical and in the interval since the performance of the History & Physical I have noted the following changes of clinical significance: Patient continues to note severe left leg pain with motor deficit that has been progressive in nature over the past 48 hours as well as urinary retention and recommending emergent decompression fusion L5-S1.
[2022-09-23] MEDS ORDERED: PHARMACY GLYCEMIC MGMT CONSULT PRN (13:53)
--- NOTE | 2022-09-23 13:56 | Hospitalist Progress Note ---
Date of Service September 23, 2022 Assessment & Plan (1) Lumbar disc herniation with radiculopathy: (2) Acute urinary retention: (3) Herniated disc: (4) DM type 2 (diabetes mellitus, type 2): Plan This is a 47 yr old F who has a significant PMH of T2DM who presented to ED 2/2 increasing lower back pain with radiation to left leg with associated weakness and urinary retention Lumbar disc herniation with radiculopathy admit to med/surg pt is NPO IVF LR @ 80 while NPO pt scheduled for surgery today continue analgesic with tylenol, valium, prn Oxy IR and Dilaudid Acute urinary retention 2/[address] T2DM a1c 8.5 add lantus, novolog coverage hold metformin and ozempic consult glycemic pharmacy DVT ppx: SCDS, pt to undergo procedure FULL CODE Dispo: pt admitted, NPO for surgical procedure today PCP: Jarret Pt was seen and examined in collaboration with Dr. Ascencio, please see addendum A total of 50 was spent coordinating, documenting, and providing care for this patient excluding time spent in the performance of separately billed services. This included personally viewing all current laboratories and imaging studies, medication reconciliation, outpatient chart review, and discussion with specialists. Admission and Anticipated Discharge Date Admission Date: September 22, 2022 Supervising Physician Co-Signing Physician Notes I have seen and examined the patient and have discussed the case with the provider above. I agree with the assessment and plan as stated. 47 yo F who is very agitated and in pain this morning. She is expressing her pain is not controlled and she is receiving the same medication she was taking at home. We reviewed what she had taken and came up with her need for a higher dose of oxycodone, which was ordered. She is NPO in preparation for lumbar surgery later this afternoon. She is agitated and hot with her sweatshirt on. Physical exam is unremarkable, however, limited exam in her legs and lower back 2/2 pain. Medications and workup reviewed. Agree with plan as noted above. DO Farrah Ascencio Pt seen and examined in room 379-2. Follow up back pain. Continues to have significant back pain and cannot wait, "for this all to be over." Plan is for surgery today. Denies fever, chills, sweats, lightheadedness, dizziness, chest pain, shortness of breath, nausea, vomiting or abdominal pain. States she fell in February and ever since July has been having significant back pain radiating down left leg with weakness. She has not had a bowel movement in several days, to but does not want stool softeners until after surgery. She also was having difficulty with urination but currently has Quezada catheter in place. Review of Systems Review of Systems: All systems reviewed & are unremarkable except as noted in HPI & below Physical Exam Physical Exam: Gen: WD/WN, NAD, A&O x3 HEENT: Normocephalic, atraumatic, conjunctivae moist, sclerae anicteric, mucous membranes moist. Lung: Clear to Auscultation bilaterally, no wheezes/rales/rhonchi Heart: Regular rate, regular rhythm, no murmurs, rubs, or gallops Abdomen: Soft, NT, ND +BS x 4 Extremities: No edema Skin: Warm, no rash, negative turgor. : Quezada catheter in place Results & Data Results & Data Vital Signs (Past 12 Hours) Vital Signs Temp Pulse Resp BP Pulse Ox O2 Del Method 09/23/22 12:47 36.5 C 79 18 141/93 H 98 Room Air 09/23/22 07:22 36.8 C 85 14 120/78 97 Room Air Laboratory Results Short CBC 09/22/22 09/23/22 Range/Units 08:15 07:58 WBC 7.20 12.36 H (4.8-10.8) K/ul Hgb 15.1 14.3 (12.0-16.0) g/dl Hct 41.2 38.6 (37.0-47.0) % Plt Count 283 274 (130-400) K/uL [facility] 09/23/22 07:58 Sodium 136 Potassium 3.9 Chloride 103 Carbon Dioxide 27 BUN 13 Creatinine 0.52 L Glucose 169 H Calcium 8.5 L Medications Administered Current Inpatient Medications Acetaminophen (Acetaminophen 500 Mg Tab) 1,000 mg PO Q8H VERENA Stop: 10/22/22 15:21 Last Admin: 09/23/22 06:30 Dose: 1,000 mg Atorvastatin Calcium (Atorvastatin 40 Mg Tab) 40 mg PO DAILY VERENA Stop: 10/23/22 08:59 Last Admin: 09/23/22 08:19 Dose: 40 mg Atropine Sulfate (Atropine Sulfate 0.1 Mg/Ml 10ml Syr) 0.5 mg IV Q1M PRN PRN Reason: PACU Use-HR<40 &/or Bradycardi Stop: 09/23/22 21:25 Dextrose (Dextrose 50% 50 Ml Syringe) 25 - 50 ml IV UD PRN; Protocol PRN Reason: Hypoglycemia Protocol Stop: 10/22/22 15:21 Diazepam (Diazepam 2 Mg Tablet) 2 mg PO Q8H [facility] Stop: 10/22/22 16:44 Last Admin: 09/23/22 08:19 Dose: 2 mg Docusate Sodium (Docusate Sodium 100 Mg Cap) 100 mg PO BID [facility] Stop: 10/22/22 20:59 Last Admin: 09/23/22 08:20 Dose: Not Given Ephedrine Sulfate (Ephedrine Sulfate 50 Mg/Ml Amp) 5 mg IV Q5M PRN PRN Reason: PACU Use Only-SBP<90 mmHg Stop: 09/23/22 21:25 Fentanyl Citrate (Fentanyl Citrate Pf 100 Mcg/2 Ml Vial) 25 mcg IV Q5M PRN PRN Reason: PACU Use Only-Pain Stop: 09/23/22 21:25 Flumazenil (Flumazenil 0.1 Mg/1 Ml 10 Ml Vial) 0.2 mg IV Q2M PRN PRN Reason: PACU Use Only-Benzo Reversal Stop: 09/23/22 21:25 Gabapentin (Gabapentin 400 Mg Cap) 400 mg PO TID [facility] Stop: 10/22/22 15:21 Last Admin: 09/23/22 08:19 Dose: 400 mg Glucagon (Glucagon For Inj 1 Mg Vial) 1 mg SQ UD PRN; Protocol PRN Reason: Hypoglycemia Protocol Stop: 10/22/22 15:21 Glucose (Glucose 10 Tab/Tube) 4 - 8 tab PO UD PRN; Protocol PRN Reason: Hypoglycemia Treatment Stop: 10/22/22 15:21 Glucose (Glucose 40% Gel 15 Gm Tube) 15 - 30 gm PO UD PRN; Protocol PRN Reason: Hypoglycemia Protocol Stop: 10/22/22 15:21 Hydromorphone HCl (Hydromorphone Inj 0.5 Mg/0.5 Ml Syr) 0.5 mg IV Q4H PRN PRN Reason: Pain (6,7,8,9,10) Stop: 10/06/22 15:21 Potassium Chloride/Sodium Chloride (Normal Saline W/20 Meq Kcl) 20 meq in 1,000 mls @ 80 mls/hr IV .[id number] ONE; Protocol Stop: 09/23/22 19:02 Last Admin: 09/23/22 07:08 Dose: 80 mls/hr Promethazine HCl 12.5 mg/ (Sodium Chloride) 50.5 mls @ 204 mls/hr IV ONCE PRN PRN Reason: PACU Use Only-Nausea/Vomiting Stop: 09/23/22 21:25 Lactated Ringer's (Lr) 1,000 mls @ 80 mls/hr IV .[id number] VERENA Stop: 10/23/22 14:14 Insulin Aspart (Insulin Aspart Per Unit Charge) 0 units SC Q6 VERENA Stop: 10/23/22 06:59 Last Admin: 09/23/22 12:38 Dose: Not Given Miscellaneous (Carbohydrates For Hypoglycemia ) 15 - 30 gm PO UD PRN PRN Reason: Hypoglycemia Protocol Stop: 10/22/22 15:21 Miscellaneous Information (Pharmacy Glycemic Mgmt Consult) 1 each N/A UD PRN; Protocol PRN Reason: Consult Stop: 10/23/22 13:52 Naloxone HCl (Naloxone Hcl 0.4 Mg/1 Ml Vial/Carp) 0.2 mg IV Q2M PRN PRN Reason: PACU Use Only-Opiate Reversal Stop: 09/23/22 21:25 Ondansetron HCl (Ondansetron Inj 2 Mg/Ml 2 Ml Vial) 4 mg IV Q6H PRN PRN Reason: Nausea Stop: 10/22/22 15:21 Ondansetron HCl (Ondansetron Inj 2 Mg/Ml 2 Ml Vial) 4 mg IV ONCE PRN PRN Reason: PACU Use Only-Nausea/Vomiting Stop: 09/23/22 21:25 Oxycodone HCl (Oxycodone Hcl Ir 5 Mg Tab (Immediate Release)) 5 - 10 mg PO QID PRN PRN Reason: Pain Stop: 10/07/22 06:29 Last Admin: 09/23/22 11:38 Dose: 10 mg Pantoprazole Sodium (Pantoprazole 40 Mg Tab) 40 mg PO DAILY [facility]; Protocol Stop: 10/23/22 08:59 Last Admin: 09/23/22 08:19 Dose: 40 mg Polyethylene Glycol (Polyethylene (Miralax) 17 Gm Pack) 17 gm PO DAILY VERENA Stop: 10/23/22 08:59 Last Admin: 09/23/22 08:20 Dose: Not Given
[2022-09-23] MEDS ORDERED: LACTATED RINGER'S 1,000 ML IV SCH (14:15)
[2022-09-23] MEDS ORDERED: SUGAMMADEX SODIUM 200 MG/2 ML VIAL IV ONE (14:42)
[2022-09-23] MEDS ORDERED: FLOSEAL HEMOSTATIC MATRIX 10ML TOP ONE (14:50)
--- NOTE | 2022-09-23 15:27 | Operative Report ---
Post Operative Report Pre & Post Diagnosis Operation Date: 09/23/22 13:30 Pre-Op Diagnosis: Lumbar disc herniation with radiculopathy, motor deficit and urinary retention Post-Op Diagnosis: Same I identified the patient and participated in the time-out.: Yes Procedure Operation Date: 09/23/22 13:30 Actual Procedures #1 revision decompression with bilateral medial facetectomies and foraminotomies L5-S1. #2 posterior spinal fusion L5-S1. #3 placement posterior instrumentation L5-S1. #4 interbody fusion L5-S1. #5 placement of Spira 12 x 26 mm cage L5-S1. #6 placement locally harvested morselized autograft in the posterior gutters. #7 placement of I factor amount of the talus in the interbody space and posterior lateral gutters. Surgeon Anton Lopez, [employer] Systems Integration Specialist Mariajose Lazo Estimated Blood Loss 20 Findings Consistent with Post-Op Diagnosis Specimens None Indications This is a 47-year-old female who presents above-mentioned diagnosis in light of her symptom complex and progressive neurologic decline she is undergoing emergent decompression fusion. Description of Procedure Patient was met with identified informed consent obtained. Patient was then taken to the operative suite underwent a patient placed in a prone position the [place] table top Toan frame. All bony prominences well-padded eyes inspected to ensure no external pressure placed upon the. This point the lumbar spine was prepped and draped in a sterile fashion. With the assistance of fluoroscopy identified the L5-S1 disc space sharp by the dissection with the assistance of Bovie cautery to form down to and exposing the remaining lamina and transverse processes of L5-S1. From caudal to cephalad fashion complete laminectomy was performed including bilateral medial facetectomies foraminotomies addressing all stenosis. During the left side decompression mass amount of disc material was noted in fact dorsal to the nerve roots both the exiting L5 and traversing S1 region. Fragments wrapped around to the anterior aspect of the roots and down the canal. These fragments were removed in their entirety causing significant neural compression. Pedicle screws were then placed in L5 and S1 levels bilaterally with assistance of fluoroscopy and appropriate sized donna placed. By way of a trans foraminal approach on the left pleat discectomy was performed endplates curetted to subcortically bone and a 12 x 26 mm Spira cage with I factor tapped in position. The rods were then locked into final position bilaterally. The transverse processes of L5 and sacral ala burred to subcortical bleeding bone. I factor one of the test and locally harvested morselized autograft was placed in the posterior gutters. 15 round UNIQUE drain inserted. The incision was then closed with 1 Vicryl to fascia 2-0 Vicryl subcutaneously and 4 Monocryl for final skin closure. Steri-Strips sterile dressings placed. Patient awakened taken to PACU stable condition. Please note spinal cord monitoring was utilized at the procedure no changes noted. Lastly Mariajose Lazo was present at the entire surgery involved the patient positioning complex portions of the surgery and final skin closure. I attest to the content of the Intraoperative Record and any orders documented therein. Any exceptions are noted below.
--- NOTE | 2022-09-23 15:45 | Fluoroscopy Report ---
FL lumbar spine 2-3V CLINICAL HISTORY: L5-S1 DFI TECHNIQUE: 2 views were obtained with the C-arm in the OR with the above procedure. Total fluoroscopy time was 22.2 seconds. Radiation dose was 16.23 mGy. Comparison: Comparison is made to x-ray lumbar spine 05/22/2022 and MRI lumbar spine 09/22/2022 FINDINGS/IMPRESSION: Intraoperative images were obtained of L5-S1 discectomy and fusion. Hardware is in satisfactory appearance in final image. Please correlate with intraoperative fluoroscopy and operative report. ACT 112: Negative or not required by law. Electronically signed by: Urban Looney M.D. 09/23/2022 3:44 PM
--- NOTE | 2022-09-23 16:18 | Anesthesiology Progress Note ---
Date of Service September 23, 2022 Anesthesia Post Procedure Vital Signs Vital Signs: Temp Pulse Pulse Resp BP Pulse Ox O2 Del Method 09/23/22 16:10 36.4 C L 93 H 14 139/93 100 Room Air 09/23/22 16:00 97 H 11 L 128/90 99 Room Air 09/23/22 15:50 92 H 15 128/79 95 Room Air 09/23/22 15:41 36.2 C L 95 H 11 L 126/80 100 Oxymask 09/23/22 12:47 36.5 C 79 18 141/93 H 98 Room Air 09/23/22 07:22 36.8 C 85 14 120/78 97 Room Air 09/22/22 21:21 36.6 C 88 18 109/66 98 Room Air O2 Flow Rate 09/23/22 16:10 09/23/22 16:00 09/23/22 15:50 09/23/22 15:41 6 09/23/22 12:47 09/23/22 07:22 09/22/22 21:21 Pain Intensity Left Lower Back: Pain Intensity: 8 Back: Pain Intensity: 10 Transfer of Care Handoff Completed per policy Notes Mental Status: alert / awake / arousable Patient Amnestic to Procedure: Yes Nausea / Vomiting: adequately controlled Pain: adequately controlled Airway Patency, RR, SpO2: stable & adequate BP & HR: stable & adequate Hydration State: stable & adequate Anesthetic Complications: no major complications apparent
[2022-09-23] MEDS ORDERED: traMADol HCL 50 MG TABLET PO PRN (16:27)
[2022-09-23] MEDS ORDERED: DO NOT ADMINISTER PNEUMOCOCCAL VACCINE PRN (16:27)
[2022-09-23] MEDS ORDERED: MAGNESIUM HYDROXIDE SUSP 30 ML UDC PO PRN (16:27)
[2022-09-23] MEDS ORDERED: SOD PHOSPHATE/SOD BIPHOSPHATE ENEMA 132 ML BTL PR PRN (16:27)
[2022-09-23] MEDS ORDERED: LORazepam 2 MG/1 ML VIAL IV PRN (16:27)
[2022-09-23] MEDS ORDERED: FAMOTIDINE 20 MG TAB PO PRN (16:27)
[2022-09-23] MEDS ORDERED: diphenhydrAMINE Capsule 25 MG CAP PO PRN (16:27)
[2022-09-23] MEDS ORDERED: ALUMINUM/MAGNESIUM SUSP 30 ML UDC PO PRN (16:27)
[2022-09-23] MEDS ORDERED: ACETAMINOPHEN 500 MG TAB PO PRN (16:27)
[2022-09-23] MEDS ORDERED: HYDROmorphone INJ 1 MG/ML SYRINGE IV PRN (16:27)
[2022-09-23] MEDS ORDERED: DO NOT ADMINISTER FLU VACCINE PRN (16:27)
[2022-09-23] MEDS ORDERED: METOCLOPRAMIDE HCL INJ 5 MG/ML 2 ML VIAL IV PRN (16:27)
[2022-09-23] MEDS ORDERED: LORazepam 0.5 MG TAB PO PRN (16:27)
[2022-09-23] MEDS ORDERED: ACETAMINOPHEN 1,000 MG/100 ML VIAL IV PRN (16:27)
[2022-09-23] MEDS ORDERED: ONDANSETRON 4 MG OD TAB PO PRN (16:27)
[2022-09-23] MEDS ORDERED: bisacodyL 10 MG SUPP PR PRN (16:27)
[2022-09-23] MEDS ORDERED: hydrOXYzine HCl 25 MG TAB PO PRN (16:27)
[2022-09-23] MEDS ORDERED: LANTUS PER UNIT CHARGE SQ SCH (21:00)
[2022-09-23] MEDS: DOCUSATE SODIUM/SENNA 50/8.6MG TAB PO SCH (21:37)
[2022-09-23] MEDS: ceFAZolin 2000MG 2,000 MG/15 ML SYR IV SCH (21:38)
[2022-09-24] MEDS: diazePAM 2 MG TABLET PO SCH ×3 (00:23→17:13)
[2022-09-24] MEDS: oxyCODONE HCL IR 5 MG TAB (IMMEDIATE RELEASE) PO PRN ×3 (05:19→20:10)
[2022-09-24] MEDS: ceFAZolin 2000MG 2,000 MG/15 ML SYR IV SCH (05:20)
[2022-09-24] MEDS: POLYETHYLENE (MIRALAX) 17 GM PACK PO SCH ×3 (05:30→17:12)
--- NOTE | 2022-09-24 05:55 | Electrocardiogram Report ---
Test Reason : Blood Pressure : / mmHG Vent. Rate : 083 BPM Atrial Rate : 083 BPM P-R Int : 146 ms QRS Dur : 096 ms QT Int : 366 ms P-R-T Axes : 067 056 043 degrees QTc Int : 430 ms Normal sinus rhythm Poor R wave progression, consider anterior OR vs. lead placement vs. LVH Abnormal ECG When compared with ECG of 19-JAN-2022 12:47, Poor R wave progression is now present Confirmed by Mikel Miller ([id number]) on 09/24/2022 5:55:05 AM Referred By: REFERRED SELF Confirmed By:Mikel Miller
--- NOTE | 2022-09-24 07:48 | Pharmacy Report ---
Pharmacy Glycemic Short Note 2 - Date of Service September 24, 2022 - Glycemic Short BSG Results (Last 24 hours): 09/23/22 09/23/22 09/23/22 07:54 07:58 12:06 Glucose 169 H POC Glucose 164 H 158 H 09/23/22 09/23/22 09/23/22 12:50 15:47 17:18 Glucose POC Glucose 146 H 177 H 251 H 09/23/22 20:37 Glucose POC Glucose 202 H OUTPATIENT ANTIDIABETIC REGIMEN: * Ozempic 1 mg SC weekly (Mondays) * Metformin 500 mg PO qAM HbA1c: 8.5% (09/23/22) ASSESSMENT: * AC is a 47 year old female POD #1 s/p lumbar decompression fusion L5-S1 * Received 10 mg IV dexamethasone on 09/22 and 8 mg IV in OR yesterday (09/23) w/ no ongoing steroids ordered at this time * Pharmacy consulted yesterday postoperatively * Received 24 units of insulin (10 units of basal and 14 units of prandial/correctional bolus) * BSGs well-controlled so far today PLAN FOR INPATIENT GLYCEMIC CONTROL: * Hold outpatient oral diabetes medications * Basal insulin * 5 units SC x 1 today * Reassess in AM * Bolus insulin * NovoLog per scale ACHS or Q6hrs while NPO * Goal Range: Low 110 mg/dL - High 140 mg/dL * Correction Factor: 25 mg/dL/unit * Nutritional / Prandial insulin per carb ratio of 1 unit per 8 grams CHO consumed
[2022-09-24 08:17] LABS: Basophils # (auto) 0.03 K/uL (0-0.2); Basophils % (auto) 0.2 %; Eosinophils # (auto) 0.06 K/uL (0-0.50); Eosinophils % (auto) 0.4 %; Hematocrit (blood only) 36.4 % (37.0-47.0); Hemoglobin 13.1 g/dl (12.0-16.0); Immature Granulocytes # (auto) 0.06 K/uL (0.01-0.20); Immature Granulocytes % (auto) 0.4 %; Lymphocytes # (auto) 2.73 K/uL (1.2-3.4); Lymphocytes % (auto) 19.3 %; Mean Corpuscular Hemoglobin 32.1 pg (25.0-34.0); Mean Corpuscular Volume 89.2 fL (80.0-100.0); Mean Platelet Volume 9.6 fL (9.4-12.4); Monocytes # (auto) 0.99 K/uL (0.11-0.59); Neutrophils % (auto) 72.7 %; Platelet Count 250 K/uL (130-400); RDW Standard Deviation 35.6 fL (36.4-46.3); Red Blood Count 4.08 M/uL (4.20-5.40); White Blood Count 14.17 K/ul (4.8-10.8)
[2022-09-24 08:32] LABS: BUN Creatinine Ratio 21.4 (10-20); Calcium 8.5 mg/dl (8.6-10.3); Creatinine Clr Calc Pharmacy 99.1 ml/min; Est GFR (African American) 118.7 ml/min; Est GFR (Non-African American) 102.5 ml/min; Potassium 4.1 mmol/L (3.5-5.1)
[2022-09-24] MEDS: INSULIN ASPART PER UNIT CHARGE SC SCH ×4 (08:37→20:46)
[2022-09-24] MEDS: DOCUSATE SODIUM 100 MG CAP PO SCH ×2 (08:38→20:10)
[2022-09-24] MEDS: GABAPENTIN 400 MG CAP PO SCH ×3 (08:39→20:09)
[2022-09-24] MEDS: ATORVASTATIN 40 MG TAB PO SCH (08:39)
[2022-09-24] MEDS: PANTOprazole 40 MG TAB PO SCH (08:39)
--- NOTE | 2022-09-24 08:55 | Orthopedic Progress Note ---
Date of Service September 24, 2022 Assessment & Plan (1) Lumbar disc herniation with radiculopathy: Plan: Hailee is postoperative day 1 status post TLIF L5-S1. We will start physical therapy today. Will remove Cabrera and do a voiding trial. Maintain UNIQUE drain. Continue with pain control. Anticipate discharge home within the next couple of days. Admission and Anticipated Discharge Date Admission Date: September 22, 2022 Subjective Hailee is postoperative day 1 status post TLIF L5-S1. Left lower extremity radicular pain has resolved. She still has numbness affecting the second and third toes. UNIQUE drain output last shift was 60 cc. Cabrera catheter intact and draining. Otherwise had an uneventful evening. Review of Systems Review of Systems: All systems reviewed & are unremarkable except as noted in HPI & below Physical Exam Physical Exam: She is sitting up in bed alert and oriented x3 No acute distress Lumbar dressing is clean dry and intact with functioning UNIQUE drain Cabrera catheter intact and draining 4/5 left EHL and 4+/5 left dorsiflexion Strength intact right lower extremity Calf soft nontender bilaterally s Results & Data Vital Signs (Past 12 Hours) Vital Signs Temp Pulse Pulse Resp BP BP Pulse Ox 09/24/22 07:43 37.1 C 74 12 130/83 99 09/24/22 07:16 37.1 C 74 16 130/83 99 09/24/22 05:15 36.7 C 79 15 115/72 95 09/24/22 00:27 36.7 C 77 16 109/70 95 O2 Del Method 09/24/22 07:43 Room Air 09/24/22 07:16 Room Air 09/24/22 05:15 Room Air 09/24/22 00:27 Room Air
[2022-09-24] MEDS ORDERED: LANTUS PER UNIT CHARGE SQ ONE (12:15)
--- NOTE | 2022-09-24 13:50 | Hospitalist Progress Note ---
Date of Service September 24, 2022 Assessment & Plan (1) Lumbar disc herniation with radiculopathy: (2) Acute urinary retention: (3) Herniated disc: (4) DM type 2 (diabetes mellitus, type 2): Plan This is a 47 yr old F who has a significant PMH of T2DM who presented to ED 2/2 increasing lower back pain with radiation to left leg with associated weakness and urinary retention Lumbar disc herniation with radiculopathy s/p Revision decompression and posterior fusion L5-S1 EBL 20ml tolerating diet quezada removal today, initiate stool softeners, pt did not want to take with quezada in place pain control Acute urinary retention 2/2 above quezada removed, voiding trial T2DM a1c 8.5 add lantus, novolog coverage hold metformin and ozempic consult glycemic pharmacy - appreciate their management bsg 149 DVT ppx: SCDS FULL CODE PCP: Jarret Pt was seen and examined in collaboration with Dr. Enriquez, please see addendum A total of 45 was spent coordinating, documenting, and providing care for this patient excluding time spent in the performance of separately billed services. This included personally viewing all current laboratories and imaging studies, medication reconciliation, outpatient chart review, and discussion with specialists. Admission and Anticipated Discharge Date Admission Date: September 22, 2022 Supervising Physician Co-Signing Physician Notes Patient seen and examined Reports significant improvement since surgery Reports shooting pain down leg is resolved Reports surgical site pain Still reports left foot numbness and some weakness in left lower extremity Remove quezada and monitor urine output Continue pain regimen Bowel regimen PT/OT Agree with plans as detailed by Rand Machado PA-C Subjective Patient was seen and examined in room 379. Follow-up lumbar surgery Patient is significantly improved today. "The nerve pain has stopped." She still feels some numbness and tingling to left foot but otherwise has had significant relief. Plan is for Quezada catheter removal today and initiation of stool softeners. Denies fever, chills, sweats, lightheadedness, dizziness, chest pain, shortness breath, nausea, vomiting, abdominal pain. Tolerating diet. Review of Systems Review of Systems: All systems reviewed & are unremarkable except as noted in HPI & below Physical Exam Physical Exam: Gen: WD/WN, NAD, A&O x3 HEENT: Normocephalic, atraumatic, conjunctivae moist, sclerae anicteric, mucous membranes moist. Lung: Clear to Auscultation bilaterally, no wheezes/rales/rhonchi Heart: Regular rate, regular rhythm, no murmurs, rubs, or gallops Abdomen: Soft, NT, ND +BS x 4 Extremities: No edema, lumbar dressing CDI, UNIQUE drain with serosanguineous drainage Skin: Warm, no rash, negative turgor. : Quezada catheter in place Results & Data Results & Data Vital Signs (Past 12 Hours) Vital Signs Temp Pulse Pulse Resp BP BP Pulse Ox 09/24/22 12:07 37.3 C 77 16 118/80 99 09/24/22 07:43 37.1 C 74 12 130/83 99 09/24/22 07:16 37.1 C 74 16 130/83 99 09/24/22 05:15 36.7 C 79 15 115/72 95 O2 Del Method 09/24/22 12:07 Room Air 09/24/22 07:43 Room Air 09/24/22 07:16 Room Air 09/24/22 05:15 Room Air Laboratory Results Short CBC 09/24/22 Range/Units 07:31 WBC 14.17 H (4.8-10.8) K/ul Hgb 13.1 (12.0-16.0) g/dl Hct 36.4 L (37.0-47.0) % Plt Count 250 (130-400) K/uL BMP 09/24/22 07:31 Sodium 136 Potassium 4.1 Chloride 102 Carbon Dioxide 30 BUN 15 Creatinine 0.70 Glucose 145 H Calcium 8.5 L Medications Administered Current Inpatient Medications Acetaminophen (Acetaminophen 500 Mg Tab) 1,000 mg PO Q8H PRN PRN Reason: MILD Pain Scale 1,2,3 & Pre PT Stop: 10/23/22 16:26 Al Hydrox/Mg Hydrox/Simethicone (Aluminum/Magnesium Susp 30 Ml Udc) 30 ml PO Q6H PRN PRN Reason: Dyspepsia Stop: 10/23/22 16:26 Atorvastatin Calcium (Atorvastatin 40 Mg Tab) 40 mg PO DAILY VERENA Stop: 10/23/22 08:59 Last Admin: 09/24/22 08:39 Dose: 40 mg Bisacodyl (Bisacodyl 10 Mg Supp) 10 mg WI DAILY PRN PRN Reason: Constipation Stop: 10/23/22 16:26 Dextrose (Dextrose 50% 50 Ml Syringe) 25 - 50 ml IV UD PRN; Protocol PRN Reason: Hypoglycemia Protocol Stop: 10/22/22 15:21 Diazepam (Diazepam 2 Mg Tablet) 2 mg PO Q8H VERENA Stop: 10/22/22 16:44 Last Admin: 09/24/22 08:42 Dose: 2 mg Diphenhydramine HCl (Diphenhydramine Capsule 25 Mg Cap) 25 mg PO Q6H PRN PRN Reason: Allergic Rhinitis/Insomnia Stop: 10/23/22 16:26 Docusate Sodium (Docusate Sodium 100 Mg Cap) 100 mg PO BID VERENA Stop: 10/22/22 20:59 Last Admin: 09/24/22 08:38 Dose: Not Given Famotidine (Famotidine 20 Mg Tab) 20 mg PO Q12H PRN PRN Reason: Dyspepsia Stop: 10/23/22 16:26 Gabapentin (Gabapentin 400 Mg Cap) 400 mg PO TID VERENA Stop: 10/22/22 15:21 Last Admin: 09/24/22 13:32 Dose: 400 mg Glucagon (Glucagon For Inj 1 Mg Vial) 1 mg SQ UD PRN; Protocol PRN Reason: Hypoglycemia Protocol Stop: 10/22/22 15:21 Glucose (Glucose 10 Tab/Tube) 4 - 8 tab PO UD PRN; Protocol PRN Reason: Hypoglycemia Treatment Stop: 10/22/22 15:21 Glucose (Glucose 40% Gel 15 Gm Tube) 15 - 30 gm PO UD PRN; Protocol PRN Reason: Hypoglycemia Protocol Stop: 10/22/22 15:21 Hydromorphone HCl (Hydromorphone Inj 0.5 Mg/0.5 Ml Syr) 0.5 mg IV Q3H PRN PRN Reason: MODERATE Pain (Scale 4,5,6) & Pre PT Stop: 10/07/22 16:26 Hydromorphone HCl (Hydromorphone Inj 1 Mg/Ml Syringe) 1 mg IV Q3H PRN PRN Reason: SEVERE Pain (Scale 7,8,9,10) Stop: 10/07/22 16:26 Hydroxyzine HCl (Hydroxyzine Hcl 25 Mg Tab) 25 mg PO Q8H PRN PRN Reason: Anxiety Stop: 10/23/22 16:26 Acetaminophen (Ofirmev) 1,000 mg in 100 mls @ 400 mls/hr IV Q8H PRN PRN Reason: Pain Rating 1-3 & Pre PT Stop: 09/24/22 16:28 Promethazine HCl 12.5 mg/ (Sodium Chloride) 50.5 mls @ 202 mls/hr IV Q6H PRN PRN Reason: Nausea &/or Vomiting Stop: 10/23/22 16:26 Influenza Virus Vaccine Quadrival (Do Not Administer Flu Vaccine) 1 each N/A PRN PRN PRN Reason: Notification Stop: 10/23/22 16:26 Insulin Aspart (Insulin Aspart Per Unit Charge) 0 units SC ACHS [facility] Stop: 10/23/22 16:44 Last Admin: 09/24/22 12:45 Dose: 4 units Lorazepam (Lorazepam 0.5 Mg Tab) 0.5 mg PO Q8H PRN PRN Reason: Sedation/Anxiety Stop: 10/23/22 16:26 Lorazepam (Lorazepam 2 Mg/1 Ml Vial) 0.5 mg IV Q8H PRN PRN Reason: Sedation/Anxiety Stop: 10/23/22 16:26 Magnesium Hydroxide (Magnesium Hydroxide Susp 30 Ml Udc) 30 ml PO Q24H PRN PRN Reason: Constipation Stop: 10/23/22 16:26 Metoclopramide HCl (Metoclopramide Hcl Inj 5 Mg/Ml 2 Ml Vial) 10 mg IV Q6H PRN PRN Reason: Nausea &/or Vomiting Stop: 10/23/22 16:26 Miscellaneous (Carbohydrates For Hypoglycemia ) 15 - 30 gm PO UD PRN PRN Reason: Hypoglycemia Protocol Stop: 10/22/22 15:21 Miscellaneous Information (Pharmacy Glycemic Mgmt Consult) 1 each N/A UD PRN; Protocol PRN Reason: Consult Stop: 10/23/22 13:52 Naloxone HCl (Naloxone Hcl 0.4 Mg/1 Ml Vial/Carp) 0.1 mg IV Q5M PRN PRN Reason: Oversedation/Resp depression Stop: 10/23/22 16:26 Ondansetron HCl (Ondansetron Inj 2 Mg/Ml 2 Ml Vial) 4 mg IV Q6H PRN PRN Reason: Nausea &/or Vomiting Stop: 10/23/22 16:26 Ondansetron HCl (Ondansetron 4 Mg Od Tab) 4 mg PO Q6H PRN PRN Reason: Nausea Stop: 10/23/22 16:26 Oxycodone HCl (Oxycodone Hcl Ir 5 Mg Tab (Immediate Release)) 5 - 10 mg PO Q4H PRN PRN Reason: Pain & Pre PT Stop: 10/07/22 16:26 Last Admin: 09/24/22 11:12 Dose: 10 mg Pantoprazole Sodium (Pantoprazole 40 Mg Tab) 40 mg PO DAILY [facility]; Protocol Stop: 10/23/22 08:59 Last Admin: 09/24/22 08:39 Dose: 40 mg Pneumococcal Polyvalent Vaccine (Do Not Administer Pneumococcal Vaccine) 1 each N/A PRN PRN PRN Reason: Notification Stop: 10/23/22 16:26 Polyethylene Glycol (Polyethylene (Miralax) 17 Gm Pack) 17 gm PO Q6 VERENA Stop: 10/24/22 05:59 Last Admin: 09/24/22 12:46 Dose: 17 gm Senna/Docusate Sodium (Docusate Sodium/Senna 50/8.6mg Tab) 2 tab PO HS [facility] Stop: 10/23/22 20:59 Last Admin: 09/23/22 21:37 Dose: 2 tab Sodium Biphosphate/Sodium Phosphate (Sod Phosphate/Sod Biphosphate Enema 132 Ml Btl) 132 ml WI ONE PRN PRN Reason: Constipation Stop: 10/23/22 16:26 Tramadol HCl (Tramadol Hcl 50 Mg Tablet) 50 - 100 mg PO Q4H PRN PRN Reason: Moderate-Severe pain & Pre PT Stop: 10/23/22 16:26
[2022-09-24] MEDS: DOCUSATE SODIUM/SENNA 50/8.6MG TAB PO SCH (20:09)
[2022-09-25] MEDS: oxyCODONE HCL IR 5 MG TAB (IMMEDIATE RELEASE) PO PRN ×3 (00:19→12:24)
[2022-09-25] MEDS: POLYETHYLENE (MIRALAX) 17 GM PACK PO SCH ×2 (00:39→05:53)
[2022-09-25] MEDS: diazePAM 2 MG TABLET PO SCH ×2 (00:45→08:49)
[2022-09-25] MEDS: ATORVASTATIN 40 MG TAB PO SCH (08:39)
[2022-09-25] MEDS: GABAPENTIN 400 MG CAP PO SCH (08:39)
[2022-09-25] MEDS: PANTOprazole 40 MG TAB PO SCH (08:39)
[2022-09-25] MEDS: DOCUSATE SODIUM 100 MG CAP PO SCH (08:39)
[2022-09-25] MEDS: INSULIN ASPART PER UNIT CHARGE SC SCH (08:48)
[2022-09-25] MEDS ORDERED: LANTUS PER UNIT CHARGE SC ONE (09:00)
--- NOTE | 2022-09-25 09:55 | Pharmacy Report ---
Pharmacy Glycemic Short Note 2 - Date of Service September 25, 2022 - Glycemic Short BSG Results (Last 24 hours): 09/24/22 09/24/22 09/24/22 12:06 17:07 20:31 POC Glucose 149 H 158 H 131 H 09/25/22 09/25/22 06:09 08:11 POC Glucose 168 H 165 H OUTPATIENT ANTIDIABETIC REGIMEN: * Ozempic 1 mg SC every Thursday * Metformin 500 mg PO AM * HbA1c: 8.5% (09/23/22) ASSESSMENT: 09/25: * Hailee received 20 units of insulin yesterday, 5 units basals + 15 units bolus. BSGs were: [phone] mg/dL. * Fasting BSG was 168 mg/dL this AM, above goal. Will increase basal today. * No change to Novolog for now. 09/24: * ARELY is a 47 year old female POD #1 s/p lumbar decompression fusion L5-S1 * Received 10 mg IV dexamethasone on 09/22 and 8 mg IV in OR yesterday (09/23) w/ no ongoing steroids ordered at this time * Pharmacy consulted yesterday postoperatively * Received 24 units of insulin (10 units of basal and 14 units of prandial/correctional bolus) * BSGs well-controlled so far today PLAN FOR INPATIENT GLYCEMIC CONTROL: * Hold outpatient oral diabetes medications * Basal insulin * 8 units SC x 1 * Reassess basal regimen in the AM * Bolus insulin * NovoLog per scale ACHS or Q6hrs while NPO * Goal Range: Low 110 mg/dL - High 140 mg/dL * Correction Factor: 25 mg/dL/unit * Nutritional / Prandial insulin per carb ratio of 1 unit per 8 grams CHO consumed
[2022-09-25 11:11] LABS: Hematocrit (blood only) 39.4 % (37.0-47.0); Hemoglobin 14.2 g/dl (12.0-16.0); Mean Corpuscular Hemoglobin 32.5 pg (25.0-34.0); Mean Corpuscular Volume 90.2 fL (80.0-100.0); Mean Platelet Volume 9.5 fL (9.4-12.4); Platelet Count 236 K/uL (130-400); RDW Coefficient of Variation 11.2 % (11.5-14.5); RDW Standard Deviation 36.6 fL (36.4-46.3); Red Blood Count 4.37 M/uL (4.20-5.40); White Blood Count 10.09 K/ul (4.8-10.8)
[2022-09-25 11:29] LABS: Calcium 9.1 mg/dl (8.6-10.3); Potassium 3.5 mmol/L (3.5-5.1)
[2022-09-25 11:34] LABS: BUN Creatinine Ratio 22.2 (10-20); Creatinine Clr Calc Pharmacy 96.4 ml/min; Est GFR (African American) 114.8 ml/min
--- NOTE | 2022-09-25 12:41 | Discharge Summary ---
Date of Service September 25, 2022 Admission HPI Per Admitting Provider 47-year-old female with PMH DM type II, GERD, lumbar discectomy in 2016, and other problems listed below who presents to the ED for evaluation of back pain and left leg weakness. History obtained from patient and review of outpatient PCP and pain management records. Patient reports she fell down the stairs in February 2022 and developed low back pain. Patient states she was seeing a chiropractor for a couple of months with relief in the pain. Pain then became an relief with clinical care manager and patient began seeing pain management. Patient had an MRI on 08/09/2022 that showed disc extrusion at L5-S1 compressing the descending left S1 nerve roots. Patient had a TFESI (transforaminal lumbar epidural steroid injection) on 08/22/22. Patient reports relief of pain for a couple of weeks however it is since returned. Patient reports pain radiates down the posterior aspect of her left leg. Left leg feels extremely weak to the point she goes up and down stairs in a seated position. Recently pain has been radiating to the " saddle" region and over to the right hip. A few days ago, patient noted that she was having difficulty emptying her bladder. She has not had a bowel movement in 4 days. Patient denies fevers and chills. No chest pain or shortness of breath. Denies lightheadedness, dizziness, diaphoresis, syncopal events. No abdominal pain, nausea, vomiting, diarrhea. In the ED, lumbar spine MRI shows left disc extrusion at L5-S1 with severe left neural foraminal stenosis. Patient received cyclobenzaprine, IV dexamethasone, IV Dilaudid, IV Zofran. Admission Exam Per Admitting Provider Constitutional: WD/WN, vitals as above Eyes: PERRL, conjunctivae normal, anicteric sclerae ENMT: external ear and nose normal, oropharynx normal Respiratory: normal respiratory effort, lungs clear to auscultation Cardiovascular: Rate/Rhythm: regular rate and regular rhythm Vessels: normal peripheral pulses Extremities: no edema Gastrointestinal (Abdomen): normal bowel sounds, soft, nontender, no hepatosplenomegaly Musculoskeletal: LLE weakness Skin: no rashes, warm and dry Neurologic: PERRL, EOMI, accommodation nl, no face palsy, no dysarthria Psychiatric: A+Ox3, euthymic affect Genitourinary: Quezada catheter in place draining clear yellow urine. Principal Diagnosis Recurrent lumbar disc herniation with progressive neurologic deterioration Discharge Exam Constitutional + well hydrated; no acute distress Eyes PERRL, conjunctivae normal, anicteric sclerae ENMT external ear and nose normal, oropharynx normal Respiratory normal respiratory effort, lungs clear to auscultation Cardiovascular Rate/Rhythm: regular rate and regular rhythm S1 S2 Gastrointestinal (Abdomen) normal bowel sounds, soft, nontender, no hepatosplenomegaly Musculoskeletal Power reduced across left ankle (improved) Clean dressing over low back Neurologic PERRL, EOMI, accommodation nl, no face palsy, no dysarthria Psychiatric A+Ox3, euthymic affect Discharge Data Allergies Allergy/AdvReac Type Severity Reaction Status Date / Time betamethasone Allergy Redness of Verified 09/22/22 16:34 Skin Consultations 09/22/22 12:28 ED Decision to Admit Stat 09/22/22 15:22 Consult Orthopedic Surgery Routine Procedures Performed Operation Date: 09/23/22 13:30 Actual Procedures p Lumbar Decompression Fusion L5-S1 Spinal Cord Monitoring(Not Applicable) - Anton Lopez DO Ordered Studies 09/22/22 08:31 MR lumbar spine wo con Stat 09/23/22 13:30 FL lumbar spine 2-3V Routine Hospital Course (1) Lumbar disc herniation with radiculopathy: (2) Acute urinary retention: (3) Herniated disc: (4) DM type 2 (diabetes mellitus, type 2): Plan 47 yr old F who has a significant PMH of T2DM who presented to ED 2/2 increasing lower back pain with radiation to left leg with associated weakness and urinary retention Lumbar disc herniation with radiculopathy s/p Revision decompression and posterior fusion L5-S1 EBL 20ml Pain controlled Acute urinary retention Due to disc herniation. Required quezada This has resolved since after surgery Diabetes mellitus Hba1c 8.5 Continue home metformin and ozempic Total Time Total Time Spent Total Time Spent (In Minutes): 35 Total Time Includes: Examination of the Patient, Discharge Planning, Medication Reconciliation and Communication With Other Providers Discharge Plan Discharge Items Patient Disposition: Home - Self-Care Reason For Visit: HERNIATED DISC Discharge Diagnosis: Recurrent lumbar disc herniation with progressive neurologic deterioration Activity: As commented below Non-emergency contact: Primary Care Provider Call non-emergency contact if: you have any medication questions Follow-up/Referrals: Anton Lopez DO [Surgeon] - 10/16/22 1:00 pm Radha Wheat MD [Primary Care Provider] - 09/30/22 10:00 am (Date & Time 09/30/2022 10:00 AM Provider Umm Patel DO Department Family Practice [facility] ) Diet: Regular Addtl Attending Provider Instructions: ACTIVITY RECOMMENDATIONS: SELF CARE INSTRUCTIONS AFTER THORACIC/LUMBAR FUSIONS 1. You may walk to your tolerance. It is good exercise for your legs and back. Expect some back and intermittent leg aches and pains. 2. You may perform "counter-top" level activities (make a sandwich, aniyah with a project, etc.). 3. No bending or lifting of more than 10 pounds or back twisting of any nature (roll like a log when turning in bed). 4. You may ride in a car for 20-30 minutes at a time. No driving until after your first visit with your doctor. 5. Frequent changes of position and restricting sitting to 30 minutes at a time will help limit the amount of back spasms and stiffness you may experience. 6. You may discontinue the use of ambulatory aids (cane, crutches, etc.) once your strength and confidence allow. 7. You may fire technology instructor the shower and let water strike your incision when you arrive home at least once daily. Do not take a tub bath, sit in a hot tub or go into a swimming pool until after your first recheck in the office. SPECIAL CARE INSTRUCTIONS: VERY IMPORTANT TO READ AND REVIEW A. Your surgical incision has been closed with a cosmetic suture under the skin that will dissolve in about 6 weeks. In 14 days, you can use a pair of clean scissors and cut the suture that is left outside of the skin at the ends of your incision. 1. The small skin tapes can be removed 7 days after surgery if they have not fallen off by that point. 2. You may keep the wound open to air as much as possible to promote healing after post-op day number 5 unless told otherwise by your doctor. 3. If you think the wound looks like it is becoming infected (redness or worsening drainage) and/or you are experiencing fever, chill or worsening back pain and muscle spasms, contact the office so that we may evaluate you as soon as possible. B. Complications are uncommon, but please contact us if you have any signs or symptoms of: 1. wound infection (fever higher than 102.5 degrees F, redness, separation of wound, drainage, or increasing pain from the incision) 2. blood clots in legs (pain, swelling, redness and warmth in legs) 3. urinary tract infection (fever higher than 102.5 degrees F, burning upon urination or increased frequency of urination) 4. nerve problems (inability to walk on your toes or heels, numbness, loss of bowel or bladder control) 5. any other symptoms that concern you C. Please call the office at if you have any concerns or quest ions about your operation or recovery. D. No smoking! Smoking drastically decreases the chance of a solid fusion. E. Do not take any anti-inflammatory medications (Indocin, Advil, Motrin, Aspirin, Naprosyn, etc.) as these may inhibit the chance of a solid fusion. Tylenol is okay to take for pain. MANAGING PAIN AFTER SPINAL SURGERY 1. Narcotic medication is intended for short-term use and will be provided for surgical pain. Surgical pain usually lasts for a period of 4-6 weeks. Narcotic medication includes Percocet, Vicodin, Darvocet, Tylenol #3 or Lortab. 2. Longer-term pain is more appropriately treated with non-narcotic medication such as Tylenol ES. 3. Muscle spasm is not appropriately treated with narcotics. Muscle relaxers such as Soma, Flexeril or Skelaxin can be used along with Tylenol ES. 4. Remember that we all live with some "aches and pains". This is not unusual or uncommon after an injury or as we get older. a. Back pain is expected and may include muscle spasms for 4 to 6 weeks after surgery. The pain should gradually improve. If the pain worsens for no apparent reason, please contact the office. b. Intermittent leg pain may also be experienced and should not be concerned about unless it worsens for no apparent reason. If so, please contact the office. 5. We will provide appropriate medication within the normal guidelines of their prescribed use. We will also be very cautious and aware of potential abuse and extended duration of patients' medication needs. a. Pain medications are for your comfort and to assist with sleep and rest so that the tissue can heal. They are not provided in order to return to normal activity and should not be used through the day. To do so or worsening pain at night can result from ongoing tissue damage and development of tolerance to the prescribed medicine. 6. Please allow 2-3 days to process refills. Prescriptions will not be mailed but must be picked up at the office. FOLLOW UP VISIT: Keep your scheduled follow-up appointment. Any questions, please call the office at . Pending Studies at Discharge: No Stand-Alone Forms: My [facility], Pain - Opioid Pain Management, Smoking Cessation Medications and DC Order Prescriptions: New oxycodone 5 mg tablet 5 mg PO Q6H PRN (Reason: pain) Qty: 30 0RF tramadol 50 mg tablet 50 mg PO Q6H PRN (Reason: pain, moderate) Qty: 30 0RF Continued atorvastatin 40 mg tablet 40 mg PO DAILY ibuprofen 800 mg Tablet 800 mg PO DAILY PRN (Reason: Pain) Rx Instructions: Patient stated she takes along with Oxycodone-apap 5-325 gabapentin 400 mg capsule 400 mg PO TID oxycodone-acetaminophen 5-325 mg tablet 1 tab PO Q8H PRN (Reason: Severe Pain (Scale Score 7-10)) esomeprazole magnesium 40 mg capsule,delayed release(DR/EC) 40 mg PO DAILY metformin 500 mg tablet extended release 24 hr 500 mg PO QAM cyclobenzaprine 5 mg tablet See Rx Instructions .ROUTE .COMPLEX Rx Instructions: Take 1 tablet by mouth at bedtime if needed for muscle spasms. Patient stated she took 2 tablets at the same time yesterday. Ozempic 1 mg/dose (4 mg/3 mL) pen injector 1 mg SUBCUT WK Rx Instructions: Every Thursday Discharge Orders: Discharge Order (Routine); Ordered 09/25/22 Ordered By: Anton Constantino/Other Patient Handouts: Managing Type 2 Diabetes Admission Data Admit Date/Time: 09/22/22 13:21 Attending Provider: Margaret Enriquez I. Admit Provider: Bob Santiago Primary Care Provider: Radha Wheat Other Providers: Bob Santiago ; Anton Lopez ; Isabel Ascencio Other Interventions: Discharge Summary Assessment (RN) Last Done: 09/25/22 12:16
--- NOTE | 2022-09-25 13:30 | Discharge Summary ---
Date of Service September 25, 2022 Admission HPI Per Admitting Provider 47-year-old female with PMH DM type II, GERD, lumbar discectomy in 2016, and other problems listed below who presents to the ED for evaluation of back pain and left leg weakness. History obtained from patient and review of outpatient PCP and pain management records. Patient reports she fell down the stairs in February 2022 and developed low back pain. Patient states she was seeing a chiropractor for a couple of months with relief in the pain. Pain then became an relief with care coordination manager and patient began seeing pain management. Patient had an MRI on 08/09/2022 that showed disc extrusion at L5-S1 compressing the descending left S1 nerve roots. Patient had a TFESI (transforaminal lumbar epidural steroid injection) on 08/22/22. Patient reports relief of pain for a couple of weeks however it is since returned. Patient reports pain radiates down the posterior aspect of her left leg. Left leg feels extremely weak to the point she goes up and down stairs in a seated position. Recently pain has been radiating to the " saddle" region and over to the right hip. A few days ago, patient noted that she was having difficulty emptying her bladder. She has not had a bowel movement in 4 days. Patient denies fevers and chills. No chest pain or shortness of breath. Denies lightheadedness, dizziness, diaphoresis, syncopal events. No abdominal pain, nausea, vomiting, diarrhea. In the ED, lumbar spine MRI shows left disc extrusion at L5-S1 with severe left neural foraminal stenosis. Patient received cyclobenzaprine, IV dexamethasone, IV Dilaudid, IV Zofran. Principal Diagnosis Lumbar disc herniation with radiculopathy and progressive neuro deficit Discharge Data Allergies Allergy/AdvReac Type Severity Reaction Status Date / Time betamethasone Allergy Redness of Verified 09/22/22 16:34 Skin Consultations 09/22/22 12:28 ED Decision to Admit Stat 09/22/22 15:22 Consult Orthopedic Surgery Routine Procedures Performed Operation Date: 09/23/22 13:30 Actual Procedures p Lumbar Decompression Fusion L5-S1 Spinal Cord Monitoring(Not Applicable) - Anton Lopez DO Ordered Studies 09/22/22 08:31 MR lumbar spine wo con Stat 09/23/22 13:30 FL lumbar spine 2-3V Routine Hospital Course (1) Lumbar disc herniation with radiculopathy: Patient was admitted with severe progressive left leg pain weakness and urinary retention she underwent emergent decompression and fusion. She tolerated this well was taken to orthopedic for postoperative. Postop day 1 radicular pain was improved she still struggled with significant strength deficits to the left EHL. However she was able to tolerate physical therapy. She progressed to postop day #2. UNIQUE drain decreasing appropriately. Pain improving. Socially discharged home. Discharge orders instructions found in chart for further review. Total Time Total Time Spent Total Time Spent (In Minutes): 20 minutes Discharge Plan Discharge Items Patient Disposition: Home - Self-Care Reason For Visit: HERNIATED DISC Discharge Diagnosis: Recurrent lumbar disc herniation with progressive neurologic deterioration Activity: As commented below Non-emergency contact: Primary Care Provider Call non-emergency contact if: you have any medication questions Follow-up/Referrals: Anton Lopez DO [Surgeon] - 10/16/22 1:00 pm Radha Wheat MD [Primary Care Provider] - 09/30/22 10:00 am (Date & Time 09/30/2022 10:00 AM Provider Umm Patel DO Department Family Practice [facility] ) Diet: Regular Addtl Attending Provider Instructions: ACTIVITY RECOMMENDATIONS: SELF CARE INSTRUCTIONS AFTER THORACIC/LUMBAR FUSIONS 1. You may walk to your tolerance. It is good exercise for your legs and back. Expect some back and intermittent leg aches and pains. 2. You may perform "counter-top" level activities (make a sandwich, aniyah with a project, etc.). 3. No bending or lifting of more than 10 pounds or back twisting of any nature (roll like a log when turning in bed). 4. You may ride in a car for 20-30 minutes at a time. No driving until after your first visit with your doctor. 5. Frequent changes of position and restricting sitting to 30 minutes at a time will help limit the amount of back spasms and stiffness you may experience. 6. You may discontinue the use of ambulatory aids (cane, crutches, etc.) once your strength and confidence allow. 7. You may labor standards director the shower and let water strike your incision when you arrive home at least once daily. Do not take a tub bath, sit in a hot tub or go into a swimming pool until after your first recheck in the office. SPECIAL CARE INSTRUCTIONS: VERY IMPORTANT TO READ AND REVIEW A. Your surgical incision has been closed with a cosmetic suture under the skin that will dissolve in about 6 weeks. In 14 days, you can use a pair of clean scissors and cut the suture that is left outside of the skin at the ends of your incision. 1. The small skin tapes can be removed 7 days after surgery if they have not fallen off by that point. 2. You may keep the wound open to air as much as possible to promote healing after post-op day number 5 unless told otherwise by your doctor. 3. If you think the wound looks like it is becoming infected (redness or worsening drainage) and/or you are experiencing fever, chill or worsening back pain and muscle spasms, contact the office so that we may evaluate you as soon as possible. B. Complications are uncommon, but please contact us if you have any signs or symptoms of: 1. wound infection (fever higher than 102.5 degrees F, redness, separation of wound, drainage, or increasing pain from the incision) 2. blood clots in legs (pain, swelling, redness and warmth in legs) 3. urinary tract infection (fever higher than 102.5 degrees F, burning upon urination or increased frequency of urination) 4. nerve problems (inability to walk on your toes or heels, numbness, loss of bowel or bladder control) 5. any other symptoms that concern you C. Please call the office at if you have any concerns or questions about your operation or recovery. D. No smoking! Smoking drastically decreases the chance of a solid fusion. E. Do not take any anti-inflammatory medications (Indocin, Advil, Motrin, Aspirin, Naprosyn, etc.) as these may inhibit the chance of a solid fusion. Tylenol is okay to take for pain. MANAGING PAIN AFTER SPINAL SURGERY 1. Narcotic medication is intended for short-term use and will be provided for surgical pain. Surgical pain usually lasts for a period of 4-6 weeks. Narcotic medication includes Percocet, Vicodin, Darvocet, Tylenol #3 or Lortab. 2. Longer-term pain is more appropriately treated with non-narcotic medication such as Tylenol ES. 3. Muscle spasm is not appropriately treated with narcotics. Muscle relaxers such as Soma, Flexeril or Skelaxin can be used along with Tylenol ES. 4. Remember that we all live with some "aches and pains". This is not unusual or uncommon after an injury or as we get older. a. Back pain is expected and may include muscle spasms for 4 to 6 weeks after surgery. The pain should gradually improve. If the pain worsens for no apparent reason, please contact the office. b. Intermittent leg pain may also be experienced and should not be concerned about unless it worsens for no apparent reason. If so, please contact the office. 5. We will provide appropriate medication within the normal guidelines of their prescribed use. We will also be very cautious and aware of potential abuse and extended duration of patients' medication needs. a. Pain medications are for your comfort and to assist with sleep and rest so that the tissue can heal. They are not provided in order to return to normal activity and should not be used through the day. To do so or worsening pain at night can result from ongoing tissue damage and development of tolerance to the prescribed medicine. 6. Please allow 2-3 days to process refills. Prescriptions will not be mailed but must be picked up at the office. FOLLOW UP VISIT: Keep your scheduled follow-up appointment. Any questions, please call the office at . Pending Studies at Discharge: No Stand-Alone Forms: My [facility], Pain - Opioid Pain Management, Smoking Cessation Medications and DC Order Prescriptions: New oxycodone 5 mg tablet 5 mg PO Q6H PRN (Reason: pain) Qty: 30 0RF tramadol 50 mg tablet 50 mg PO Q6H PRN (Reason: pain, moderate) Qty: 30 0RF Continued atorvastatin 40 mg tablet 40 mg PO DAILY ibuprofen 800 mg Tablet 800 mg PO DAILY PRN (Reason: Pain) Rx Instructions: Patient stated she takes along with Oxycodone-apap 5-325 gabapentin 400 mg capsule 400 mg PO TID oxycodone-acetaminophen 5-325 mg tablet 1 tab PO Q8H PRN (Reason: Severe Pain (Scale Score 7-10)) esomeprazole magnesium 40 mg capsule,delayed release(DR/EC) 40 mg PO DAILY metformin 500 mg tablet extended release 24 hr 500 mg PO QAM cyclobenzaprine 5 mg tablet See Rx Instructions .ROUTE .COMPLEX Rx Instructions: Take 1 tablet by mouth at bedtime if needed for muscle spasms. Patient stated she took 2 tablets at the same time yesterday. Ozempic 1 mg/dose (4 mg/3 mL) pen injector 1 mg SUBCUT WK Rx Instructions: Every Thursday Discharge Orders: Discharge Order (Routine); Ordered 09/25/22 Ordered By: Anton Constantino/Other Patient Handouts: Managing Type 2 Diabetes Admission Data Admit Date/Time: 09/22/22 13:21 Attending Provider: Margaret Enriquez I. Admit Provider: Bob Santiago Primary Care Provider: Radha Wheat Other Providers: Bob Santiago ; Anton Lopez ; Isaebl Ascencio. Other Interventions: Discharge Summary Assessment (RN) Last Done: 09/25/22 12:16
== END 2022-09-25 13:22 | disposition home or self-care (01) | DRG 455 ==
LOC: ED 07:42 → SUATTDRO 13:21 → 3N 13:21

== ENCOUNTER 2022-09-26 19:14 | Observation (INO) ==
[2022-09-26] MEDS ORDERED: SODIUM CHLORIDE 0.9% 1000ML 1,000 ML IV ONE ×2 (19:50→23:01)
[2022-09-26] MEDS ORDERED: ONDANSETRON INJ 2 MG/ML 2 ML VIAL IV STA (19:50)
--- NOTE | 2022-09-26 19:53 | Emergency Department Note ---
Impression & Plan Constipation, Vomiting, Hx of spinal surgery ED Provider Note NAME: DAEL BERNAL AGE: 47 SEX: F : 1975 ARRIVES VIA: Walk-In INFORMANT: [Patient] ED PROVIDER(S): [Jose Velez MD] CHIEF COMPLAINT: Constipation HISTORY OF PRESENT ILLNESS: The patient is a 47-year-old female who presents to the ED with constipation. She has not had a bowel movement in about a week. She has used multiple doses of MiraLAX and multiple stool softeners without relief. She did vomit some toda y. No abdominal pain, no fever, no cough or congestion or shortness of breath. She is urinating without difficulty. The patient is status post lumbar spinal surgery with Dr. Lopez. She had a decompression with hardware placement. She was discharged from our hospital yesterday. PMHx/PSHx: See Below SOCIAL HISTORY: See Below. PHYSICAL EXAM: GENERAL: Patient is in no acute distress. HEENT: No acute trauma, normocephalic atraumatic, mucous membranes moist, no nasal congestion. NECK: No stridor, no adenopathy, no meningismus, trachea is midline. LUNGS: Clear to auscultation bilaterally, no wheeze, no rhonchi, breath sounds equal. HEART: Without murmurs gallops or rubs, regular rate and rhythm. ABDOMEN: Soft, nontender, bowel sounds positive, no peritonitis. EXTREMITIES: No cyanosis or edema, full range of motion of all the joints without pain or difficulty, no signs for acute trauma. NEUROLOGIC: Oriented x 3, no acute motor or sensory deficits, no focal weakness. SKIN: No rash, no jaundice, no diaphoresis. Back: Surgical incision appears to be healing well, the dressing is without significant drainage. Rectal: Normal rectal tone, no stool in the rectal vault. DIFFERENTIAL DIAGNOSIS: Constipation, bowel obstruction, dehydration, ileus, electrolyte imbalance, among others. EMERGENCY DEPARTMENT COURSE/PROCEDURES: Prior/Outside records reviewed: Recent discharge summary. MEDICAL DECISION MAKING: There is no leukocytosis or concerning anemia. There is a normal platelet count. Renal panel testing shows a mildly low sodium, no need for emergent correction. There is no renal failure. Glucose was slightly high at 142. KUB per my review shows some constipation. No stool in the rectum. No bowel obstruction. On exam, the patient did not have any abdominal pain. There was no significant abdominal distention. She was not toxic or febrile. Rectal exam showed no stool in the rectal vault and the rectal tone seemed normal. Patient received 1.5 L of IV saline, she was given 4 mg of IV Zofran. She received IV Tylenol and oral Senokot. The patient presents with vomiting and the inability to move her bowels. She did not have findings of bowel obstruction. She did appear constipated. She just left the hospital yesterday. With the vomiting, with the recent discharge, with the recent surgery, I do think a hospital stay for hydration and a bowel regimen would be warranted. I did attempt to contact Dr. Lopez of spinal surgery, unfortunately, I was unable to discuss the case with him. I did speak with the patient at length, I spoke with case management, the on- call hospitalist was consulted. DISPOSITION: Patient's presentation and findings warrant a hospital stay. Past Med/Surg History Medical History DM type 2 (diabetes mellitus, type 2) GERD (gastroesophageal reflux disease) Surgical History History of cholecystectomy History of hysterectomy History of lumbar discectomy Family History Other Family history non-contributory Social History Smoking Status: Current every day smoker Tobacco Type: E-cigarettes / Vaping Second Hand Exposure: No; Do You Dip or Chew Tobacco: No; Hx Alcohol Use: Yes Hx Substance Use: No Preferred Language: Nepalese Communication Ability: Effective Building Attendant Required: No Beliefs That Will Affect Care: None Current Living Situation: Spouse Current Living Situation Comment: 2 kids and Feels Safe at Home: Yes Assistive Devices: Walker Allergies Allergies Allergy/AdvReac Type Severity Reaction Status Date / Time betamethasone Allergy Redness of Verified 09/22/22 16:34 Skin Home Meds Home Medications Medication Instructions Recorded Confirmed atorvastatin 40 mg tablet 40 mg PO DAILY 09/22/22 09/22/22 cyclobenzaprine 5 mg tablet See Rx Instructions .Route .COMPLEX 09/22/22 09/22/22 esomeprazole magnesium 40 mg 40 mg PO DAILY 09/22/22 09/22/22 capsule,delayed release gabapentin 400 mg capsule 400 mg PO TID 09/22/22 09/22/22 ibuprofen 800 mg tablet 800 mg PO DAILY PRN Pain 09/22/22 09/22/22 metformin 500 mg tablet,extended 500 mg PO QAM 09/22/22 09/22/22 release 24 hr oxycodone-acetaminophen 5 mg-325 1 tab PO Q8H PRN Severe Pain 09/22/22 09/22/22 mg tablet (Scale Score 7-10) semaglutide 1 mg/dose (4 mg/3 mL) 1 mg subcut WK 09/22/22 09/22/22 subcutaneous pen injector (Ozempic) Previous Rx's Medication Instructions Recorded oxycodone 5 mg tablet 5 mg PO Q6H PRN pain #30 tabs 09/24/22 tramadol 50 mg tablet 50 mg PO Q6H PRN pain, moderate 09/24/22 #30 tabs Results & Data (ED) Vital Signs Vital Signs - 24 hr 09/26/22 19:15 09/26/22 19:35 Temperature 36.8 C Temperature Source Temporal Artery Scan Pulse Rate 138 H 96 H Respiratory Rate 20 Respiratory Effort / Characteristics Non-Labored Spontaneous Respiratory Depth Normal Blood Pressure 109/81 Blood Pressure Mean 90 Pulse Oximetry 98 Sepsis Recent Fever Within 48 Hours No Sepsis New/Unexplained Change in Mental Status N/A Sepsis Action Taken by Nursing No Action Required Home Medications Current Medication List: was personally reviewed by me Laboratory Data Attestation: I reviewed the patient's lab results. 09/26/22 21:49 09/26/22 21:49 Lab Results 09/26/22 09/26/22 Range/Units 21:49 21:49 WBC 10.63 (4.8-10.8) K/ul RBC 4.62 (4.20-5.40) M/uL Hgb 14.9 (12.0-16.0) g/dl Hct 40.8 (37.0-47.0) % MCV 88.3 (80.0-100.0) fL MCH 32.3 (25.0-34.0) pg MCHC 36.5 H (32.0-36.0) g/dL RDW Std Deviation 35.6 L (36.4-46.3) fL RDW Coeff of Caio 11.1 L (11.5-14.5) % Plt Count 290 (130-400) K/uL MPV 9.4 (9.4-12.4) fL Immature Gran % (Auto) 0.3 % Neut % (Auto) 67.5 % Lymph % (Auto) 21.9 % [place] % (Auto) 6.7 % Eos % (Auto) 3.2 % Baso % (Auto) 0.4 % Neut # (Auto) 7.18 H (1.40-6.50) K/uL Lymph # (Auto) 2.33 (1.2-3.4) K/uL [place] # (Auto) 0.71 H (0.11-0.59) K/uL Eos # (Auto) 0.34 (0-0.50) K/uL Baso # (Auto) 0.04 (0-0.2) K/uL Immature Gran # (Auto) 0.03 (0.01-0.20) K/uL Sodium 134 L (136-145) mmol/L Potassium 4.1 (3.5-5.1) mmol/L Chloride 97 L (98-107) mmol/L Carbon Dioxide 29 (21-32) mmol/L Anion Gap 8 (3-11) BUN 12 (6-23) mg/dl Creatinine 0.52 L (0.6-1.2) mg/dl Est Cr Clr Drug Dosing 133.5 ml/min Est GFR ( Amer) 130.9 ml/min Est GFR (Non-Af Amer) 113.0 ml/min BUN/Creatinine Ratio 23.1 H (10-20) Glucose 142 H (70-99(Fasting)) mg/dl Calcium 9.1 (8.6-10.3) mg/dl Administered Medications Discontinued Medications Sodium Chloride (Nss 1000ml) 1,000 mls @ 999 mls/hr IV .Q1H1M ONE Stop: 09/26/22 20:50 Last Admin: 09/26/22 21:49 Dose: 999 mls/hr Documented By: Ondansetron HCl (Ondansetron Inj 2 Mg/Ml 2 Ml Vial) 4 mg IV NOW STA Stop: 09/26/22 19:51 Last Admin: 09/26/22 21:49 Dose: 4 mg Documented By: Imaging Data My Impression: KUB per my review: There is no bowel obstruction, constipation is noted. No stool in the rectal vault. Discharge Plan Visit Data Chief Complaint: Constipation Stated Complaint: HASNT HAD BM IN A WEEK, VOMITING ED Provider: Jose Velez Discharge Problem: Constipation, Vomiting, Hx of spinal surgery Patient Disposition: Admitted As Inpatient Condition: Good Forms Stand Alone Forms: My [facility] Prescriptions Prescriptions: No Action atorvastatin 40 mg tablet 40 mg PO DAILY ibuprofen 800 mg Tablet 800 mg PO DAILY PRN (Reason: Pain) Rx Instructions: Patient stated she takes along with Oxycodone-apap 5-325 gabapentin 400 mg capsule 400 mg PO TID oxycodone-acetaminophen 5-325 mg tablet 1 tab PO Q8H PRN (Reason: Severe Pain (Scale Score 7-10)) esomeprazole magnesium 40 mg capsule,delayed release(DR/EC) 40 mg PO DAILY metformin 500 mg tablet extended release 24 hr 500 mg PO QAM cyclobenzaprine 5 mg tablet See Rx Instructions .ROUTE .COMPLEX Rx Instructions: Take 1 tablet by mouth at bedtime if needed for muscle spasms. Patient stated she took 2 tablets at the same time yesterday. Ozempic 1 mg/dose (4 mg/3 mL) pen injector 1 mg SUBCUT WK Rx Instructions: Every Thursday oxycodone 5 mg tablet 5 mg PO Q6H PRN (Reason: pain) Qty: 30 0RF tramadol 50 mg tablet 50 mg PO Q6H PRN (Reason: pain, moderate) Qty: 30 0RF Referrals Referrals: Radha Wheat MD [Primary Care Provider] -
[2022-09-26 22:14] LABS: Basophils # (auto) 0.04 K/uL (0-0.2); Basophils % (auto) 0.4 %; Eosinophils # (auto) 0.34 K/uL (0-0.50); Eosinophils % (auto) 3.2 %; Hematocrit (blood only) 40.8 % (37.0-47.0); Hemoglobin 14.9 g/dl (12.0-16.0); Immature Granulocytes # (auto) 0.03 K/uL (0.01-0.20); Immature Granulocytes % (auto) 0.3 %; Lymphocytes # (auto) 2.33 K/uL (1.2-3.4); Lymphocytes % (auto) 21.9 %; Mean Corpuscular Hemoglobin 32.3 pg (25.0-34.0); Mean Corpuscular Hgb Conc 36.5 g/dL (32.0-36.0); Mean Corpuscular Volume 88.3 fL (80.0-100.0); Mean Platelet Volume 9.4 fL (9.4-12.4); Monocytes # (auto) 0.71 K/uL (0.11-0.59); Monocytes % (auto) 6.7 %; Neutrophils # (auto) 7.18 K/uL (1.40-6.50); Neutrophils % (auto) 67.5 %; Platelet Count 290 K/uL (130-400); RDW Coefficient of Variation 11.1 % (11.5-14.5); RDW Standard Deviation 35.6 fL (36.4-46.3); Red Blood Count 4.62 M/uL (4.20-5.40); White Blood Count 10.63 K/ul (4.8-10.8)
[2022-09-26 22:29] LABS: BUN Creatinine Ratio 23.1 (10-20); Calcium 9.1 mg/dl (8.6-10.3); Creatinine Clr Calc Pharmacy 133.5 ml/min; Est GFR (African American) 130.9 ml/min; Potassium 4.1 mmol/L (3.5-5.1)
[2022-09-26] MEDS ORDERED: ACETAMINOPHEN 1,000 MG/100 ML VIAL IV STA (22:40)
[2022-09-26] MEDS ORDERED: DOCUSATE SODIUM/SENNA 50/8.6MG TAB PO STA (22:40)
[2022-09-26] MEDS ORDERED: SODIUM CHLORIDE 0.9% 1000ML 500 ML IV ONE (22:40)
[2022-09-26] MEDS ORDERED: LACTULOSE SYRUP 20 GM/30 ML UDC PO STA (22:59)
[2022-09-26] MEDS ORDERED: POLYETHYLENE (MIRALAX) 17 GM PACK PO STA (22:59)
[2022-09-26 23:27] LABS: Albumin Level 4.1 gm/dl (3.4-5.0); Bilirubin Direct 0.2 mg/dl (0-0.2); Bilirubin,Total 1.1 mg/dl (0.2-1.0); Magnesium 2.1 mg/dl (1.7-2.4); Total Protein 6.8 gm/dl (6.0-8.3)
--- NOTE | 2022-09-26 23:55 | History & Physical Report ---
Date of Service September 26, 2022 Assessment & Plan (1) Obstipation: Plan: 1 week history of symptoms preceding recent lumbar decompression surgery possible opioid induced constipation hypertension, stable, not on maintenance meds GERD on PPI DM 2 on oral medications, suboptimal control as of recent hemoglobin A1c of 8.5 this month Ongoing vape use OBS GMF Bowel regimen Follow plain abdominal x-ray results in a.m. Methylnaltrexone trial if no bowel obstruction on official x-ray read and patient still without bowel movement. Orthopedic spine consult Re: Postop eval Basal bolus insulin adjusted for clear liquid diet for now, ISS BG goal 1 10-1 40, carb count coverage DVT prophylaxis. SCDs Re: Recent back surgery Full code Text document was generated using [employer] voice recognition software. It may contain grammatical or spelling errors. Kindly contact undersigned for clarification of any documentation item in question. History of Present Illness Chief Complaint: Nausea, vomiting, obstipation Primary Care Provider: Radha Wheat MD History obtained from patient and records. Medical history significant for hypertension, GERD, DM 2 on oral medications, chronic back pain status post surgeries, ongoing vape use. Recent confinement September 22-2022 for lumbar radiculopathy status post decompression surgery. Patient discharged home yesterday. No bowel movement for about a week. Patient denies abdominal pain, nausea, vomiting, fever, chills at time of discharge. Patient hopeful bowels would move when she got home with laxative intake. Persistent obstipation symptoms at home. Subsequent nausea, vomiting symptoms without abdominal pain. Back pain somewhat worse with vomiting with some radiation to the left lower extremity. No incontinence, no fever, no chills, no unusual weakness. Patient consulted ER for worsening symptoms. Medical History as above Surgical History : section, hysterectomy, back surgeries, partial hysterectomy, cholecystectomy Family History : DM Personal/Social history : Vape use, no EtOH intake, [employer] employee Allergies Allergy/AdvReac Type Severity Reaction Status Date / Time betamethasone Allergy Redness of Verified 09/26/22 22:58 Skin Home Medications Medication Instructions Recorded Confirmed Type atorvastatin 40 mg tablet 40 mg PO DAILY 09/22/22 09/26/22 History cyclobenzaprine 5 mg tablet See Rx Instructions .Route .COMPLEX 09/22/22 09/26/22 History esomeprazole magnesium 40 mg 40 mg PO DAILY 09/22/22 09/26/22 History capsule,delayed release gabapentin 400 mg capsule 400 mg PO TID 09/22/22 09/26/22 History ibuprofen 800 mg tablet 800 mg PO DAILY PRN Pain 09/22/22 09/26/22 History metformin 500 mg tablet,extended 500 mg PO QAM 09/22/22 09/26/22 History release 24 hr oxycodone-acetaminophen 5 mg-325 1 tab PO Q8H PRN Severe Pain 09/22/22 09/26/22 History mg tablet (Scale Score 7-10) semaglutide 1 mg/dose (4 mg/3 mL) 1 mg subcut WK 09/22/22 09/26/22 History subcutaneous pen injector (Ozempic) oxycodone 5 mg tablet 5 mg PO Q6H PRN pain #30 tabs 09/24/22 09/26/22 Rx tramadol 50 mg tablet 50 mg PO Q6H PRN pain, moderate 09/24/22 09/26/22 Rx #30 tabs acetaminophen 500 mg tablet 1,000 mg PO Q6H PRN Pain 09/26/22 09/26/22 History (Tylenol Extra Strength) Past Med/Surg History Medical History DM type 2 (diabetes mellitus, type 2) GERD (gastroesophageal reflux disease) Surgical History History of cholecystectomy History of hysterectomy History of lumbar discectomy Family History Other Family history non-contributory Social History Smoking Status: Current every day smoker Tobacco Type: E-cigarettes / Vaping Second Hand Exposure: No; Do You Dip or Chew Tobacco: No; Tobacco Cessation Education Requested by Patient: No Hx Alcohol Use: Yes Hx Substance Use: No Preferred Language: Guinean Communication Ability: Effective Director Strategic Account Management Required: No Beliefs That Will Affect Care: None Current Living Situation: Spouse Current Living Situation Comment: 2 kids and Other Information That Helps Us Care for You: No Feels Safe at Home: Yes Safety Concerns: Feels Safe At This Time Assistive Devices: None Review of Systems Review of Systems: As per HPI, all other systems reviewed and negative Physical Exam Physical Exam: GENERAL: Slightly uncomfortable, pleasant, no respiratory distress SKIN: Normal color, warm HEENT: [place] palpebral conjunctivae, no ptosis, dry buccal mucosa NECK : Supple, no tenderness CHEST : CTA, no tenderness HEART : RRR, no obvious murmurs ABDOMEN: Some distention, nontender BACK : Low back tenderness EXTREMITIES : No LE swelling/tenderness, no other conspicuous deformities noted NEUROLOGIC : Coherent, no facial asymmetry, no other gross focality Results & Data Results & Data Vital Signs (Past 12 Hours) Vital Signs Temp Pulse Pulse Resp BP BP Pulse Ox 09/26/22 22:42 91 H 19 112/68 97 09/26/22 19:35 96 H 09/26/22 19:15 36.8 C 138 H 20 109/81 98 O2 Del Method 09/26/22 22:42 Room Air 09/26/22 19:35 09/26/22 19:15 Laboratory Results Laboratory Results WBC 10.63 K/ul (4.8-10.8) 09/26/22 21:49 RBC 4.62 M/uL (4.20-5.40) 09/26/22 21:49 Hgb 14.9 g/dl (12.0-16.0) 09/26/22 21:49 Hct 40.8 % (37.0-47.0) 09/26/22 21:49 MCV 88.3 fL (80.0-100.0) 09/26/22 21:49 MCH 32.3 pg (25.0-34.0) 09/26/22 21:49 MCHC 36.5 g/dL (32.0-36.0) H 09/26/22 21:49 RDW Std Deviation 35.6 fL (36.4-46.3) L 09/26/22 21:49 RDW Coeff of Caio 11.1 % (11.5-14.5) L 09/26/22 21:49 Plt Count 290 K/uL (130-400) 09/26/22 21:49 MPV 9.4 fL (9.4-12.4) 09/26/22 21:49 Immature Gran % (Auto) 0.3 % 09/26/22 21:49 Neut % (Auto) 67.5 % 09/26/22 21:49 Lymph % (Auto) 21.9 % 09/26/22 21:49 [place] % (Auto) 6.7 % 09/26/22 21:49 Eos % (Auto) 3.2 % 09/26/22 21:49 Baso % (Auto) 0.4 % 09/26/22 21:49 Neut # (Auto) 7.18 K/uL (1.40-6.50) H 09/26/22 21:49 Lymph # (Auto) 2.33 K/uL (1.2-3.4) 09/26/22 21:49 [place] # (Auto) 0.71 K/uL (0.11-0.59) H 09/26/22 21:49 Eos # (Auto) 0.34 K/uL (0-0.50) 09/26/22 21:49 Baso # (Auto) 0.04 K/uL (0-0.2) 09/26/22 21:49 Immature Gran # (Auto) 0.03 K/uL (0.01-0.20) 09/26/22 21:49 Sodium 134 mmol/L (136-145) L 09/26/22 21:49 Potassium 4.1 mmol/L (3.5-5.1) 09/26/22 21:49 Chloride 97 mmol/L (98-107) L 09/26/22 21:49 Carbon Dioxide 29 mmol/L (21-32) 09/26/22 21:49 Anion Gap 8 (3-11) 09/26/22 21:49 BUN 12 mg/dl (6-23) 09/26/22 21:49 Creatinine 0.52 mg/dl (0.6-1.2) L 09/26/22 21:49 Est Cr Clr Drug Dosing 133.5 ml/min 09/26/22 21:49 Est GFR ( Amer) 130.9 ml/min 09/26/22 21:49 Est GFR (Non-Af Amer) 113.0 ml/min 09/26/22 21:49 BUN/Creatinine Ratio 23.1 (10-20) H 09/26/22 21:49 Glucose 142 mg/dl (70-99(Fasting)) H 09/26/22 21:49 Calcium 9.1 mg/dl (8.6-10.3) 09/26/22 21:49 Magnesium 2.1 mg/dl (1.7-2.4) 09/26/22 21:49 Total Bilirubin 1.1 mg/dl (0.2-1.0) H 09/26/22 21:49 Direct Bilirubin 0.2 mg/dl (0-0.2) 09/26/22 21:49 AST 14 U/L (13-39) 09/26/22 21:49 ALT 12 U/L (7-52) 09/26/22 21:49 Alkaline Phosphatase 79 U/L (34-104) 09/26/22 21:49 Total Protein 6.8 gm/dl (6.0-8.3) 09/26/22 21:49 Albumin 4.1 gm/dl (3.4-5.0) 09/26/22 21:49 Lipase 10 U/L (11-82) L 09/26/22 21:49 Diagnostic Findings KUB x-ray read pending
[2022-09-27] MEDS ORDERED: PROMETHAZINE HCL 6.25 MG in SODIUM CHLORIDE 0.9% 50 ML IV PRN
[2022-09-27] MEDS ORDERED: LORazepam 0.5 MG TAB PO PRN
[2022-09-27 00:22] LABS: Appearance Urine Clear (Clear); Bilirubin Urine Negative (Negative); Blood Urine Negative (Negative); Color Urine Yellow; Glucose Urine UA 2+ (Negative); Ketones Urine 2+ (Negative); Leukocyte Esterase Urine Negative (Negative); Nitrite Urine Negative (Negative); Protein Urine Negative (Negative); Specific Gravity Urine 1.016 (1.000-1.030); Urobilinogen Urine Negative (Negative)
[2022-09-27] MEDS ORDERED: LACTULOSE SYRUP 20 GM/30 ML UDC PO ONE (02:00)
[2022-09-27] MEDS ORDERED: GLUCAGON FOR INJ 1 MG VIAL SQ PRN (02:14)
[2022-09-27] MEDS ORDERED: DEXTROSE 50% 50 ML SYRINGE IV PRN (02:14)
[2022-09-27] MEDS ORDERED: POLYETHYLENE (MIRALAX) 17 GM PACK PO PRN (02:14)
[2022-09-27] MEDS ORDERED: ACETAMINOPHEN 325 MG TAB PO PRN (02:14)
[2022-09-27] MEDS ORDERED: GLUCOSE 10 TAB/TUBE PO PRN (02:14)
[2022-09-27] MEDS ORDERED: GLUCOSE 40% GEL 15 GM TUBE PO PRN (02:14)
[2022-09-27] MEDS ORDERED: CARBOHYDRATES FOR HYPOGLYCEMIA PO PRN (02:14)
[2022-09-27] MEDS: INSULIN ASPART PER UNIT CHARGE SC SCH ×3 (03:08→12:36)
[2022-09-27] MEDS: oxyCODONE HCL IR 5 MG TAB (IMMEDIATE RELEASE) PO PRN ×2 (03:13→09:06)
[2022-09-27] MEDS ORDERED: LACTULOSE SYRUP 30 GM/45 ML UDP PO STA (05:38)
[2022-09-27] MEDS ORDERED: DOCUSATE SODIUM/SENNA 50/8.6MG TAB PO SCH ×2 (07:15→09:00)
--- NOTE | 2022-09-27 08:41 | Orthopedic Consultation ---
Date of Consultation September 27, 2022 Assessment & Plan (1) Obstipation: I would like to obtain x-rays lumbar spine to rule out any shifting of the implants. I encouraged her to ambulate as tolerated. We will give her a short course of steroids to help with her radiculopathy. History of Present Illness Reason for Consultation: Postop obstipation Attending Physician: Margaret Enriquez MD History of Present Illness This is a 39-year-old female well-known to me status post emergent lumbar decompression fusion. Unfortunately she returned to the hospital yesterday with marked constipation and vomiting. She has had increasing pain secondary to her vomiting. She is comfortable at this time is had 1 bowel movement. She is amb ulating the halls. Allergies Allergy/AdvReac Type Severity Reaction Status Date / Time betamethasone Allergy Redness of Verified 09/26/22 22:58 Skin Home Medications Medication Instructions Recorded Confirmed Type atorvastatin 40 mg tablet 40 mg PO DAILY 09/22/22 09/26/22 History cyclobenzaprine 5 mg tablet See Rx Instructions .Route .COMPLEX 09/22/22 09/26/22 History esomeprazole magnesium 40 mg 40 mg PO DAILY 09/22/22 09/26/22 History capsule,delayed release gabapentin 400 mg capsule 400 mg PO TID 09/22/22 09/26/22 History ibuprofen 800 mg tablet 800 mg PO DAILY PRN Pain 09/22/22 09/26/22 History metformin 500 mg tablet,extended 500 mg PO QAM 09/22/22 09/26/22 History release 24 hr oxycodone-acetaminophen 5 mg-325 1 tab PO Q8H PRN Severe Pain 09/22/22 09/26/22 History mg tablet (Scale Score 7-10) semaglutide 1 mg/dose (4 mg/3 mL) 1 mg subcut WK 09/22/22 09/26/22 History subcutaneous pen injector (Ozempic) oxycodone 5 mg tablet 5 mg PO Q6H PRN pain #30 tabs 09/24/22 09/26/22 Rx tramadol 50 mg tablet 50 mg PO Q6H PRN pain, moderate 09/24/22 09/26/22 Rx #30 tabs acetaminophen 500 mg tablet 1,000 mg PO Q6H PRN Pain 09/26/22 09/26/22 History (Tylenol Extra Strength) Patient History Medical History DM type 2 (diabetes mellitus, type 2) GERD (gastroesophageal reflux disease) Surgical History History of cholecystectomy History of hysterectomy History of lumbar discectomy Family History Other Family history non-contributory Social History Smoking Status: Current every day smoker Tobacco Type: E-cigarettes / Vaping Second Hand Exposure: No; Do You Dip or Chew Tobacco: No; Tobacco Cessation Education Requested by Patient: No Hx Alcohol Use: Yes Hx Substance Use: No Preferred Language: Tristanian Communication Ability: Effective [employer] Required: No Beliefs That Will Affect Care: None Current Living Situation: Spouse Current Living Situation Comment: 2 kids and Other Information That Helps Us Care for You: No Feels Safe at Home: Yes Safety Concerns: Feels Safe At This Time Assistive Devices: None Physical Exam Physical Exam: On exam she is currently in bed. She does appear more comfortable. She continues to have deficits to the EHL and numbness in the left foot on exam. Results & Data Vital Signs (Past 12 Hours) Vital Signs Temp Pulse Pulse Resp BP BP Pulse Ox 09/27/22 07:15 36.7 C 86 16 122/77 99 09/27/22 02:08 36.4 C L 104 H 15 118/80 98 09/26/22 22:42 91 H 19 112/68 97 O2 Del Method 09/27/22 07:15 Room Air 09/27/22 02:08 Room Air 09/26/22 22:42 Room Air
--- NOTE | 2022-09-27 08:56 | XRay Report ---
XR KUB/Abdomen 1 view CLINICAL HISTORY: constipation TECHNIQUE: 1 view of the abdomen was obtained. Comparison: None available at the time of this dictation. FINDINGS: Lung bases are unremarkable. Posterior fixation hardware is seen in L5-S1. The bowel gas pattern is n onobstructive. A moderate amount of stool is noted within the large bowel. IMPRESSION: Nonobstructive bowel gas pattern. ACT 112: Negative or not required by law. Electronically signed by: Urban Looney M.D. 09/27/2022 8:55 AM
[2022-09-27] MEDS ORDERED: dexAMETHasone 8 MG in SYRINGE 0 ML IV SCH (09:00)
[2022-09-27] MEDS ORDERED: LANTUS PER UNIT CHARGE SQ SCH (09:00)
[2022-09-27] MEDS ORDERED: GABAPENTIN 400 MG CAP PO SCH (09:00)
[2022-09-27] MEDS ORDERED: PANTOprazole 40 MG TAB PO SCH (09:00)
[2022-09-27] MEDS ORDERED: ATORVASTATIN 40 MG TAB PO SCH (09:00)
--- NOTE | 2022-09-27 09:37 | XRay Report ---
XR lumbar spine 2-3V CLINICAL HISTORY: postop TECHNIQUE: 3 views of the lumbar spine were obtained. Comparison: Comparison is made to lumbar spine 09/26/2022 FINDINGS: Posterior fixation device spans L5-S1. Degenerative changes are seen in the lumbar spine. Multiple ai r-fluid levels are seen with distention of bowel loops. IMPRESSION: 1. Expected postoperative appearance of the lumbar spine without evidence of fracture. 2. Interval development of numerous short air-fluid levels with distended loops of bowel, clinical c orrelation for postsurgical ileus is recommended. ACT 112: Negative or not required by law. Electronically signed by: Urban Looney M.D. 09/27/2022 9:36 AM
[2022-09-27] MEDS ORDERED: bisacodyL 10 MG SUPP PR STA (10:23)
--- NOTE | 2022-09-27 12:44 | Discharge Summary ---
Date of Service September 27, 2022 Admission HPI Per Admitting Provider History obtained from patient and records. Medical history significant for hypertension, GERD, DM 2 on oral medications, chronic back pain status post surgeries, ongoing vape use. Recent confinement September 22-2022 for lumbar radiculopathy status post decompression surgery. Patient discharged home yesterday. No bowel movement for about a week. Patient denies abdominal pain, nausea, vomiting, fever, chills at time of discharge. Patient hopeful bowels would move when she got home with laxative intake. Persistent obstipation symptoms at home. Subsequent nausea, vomiting symptoms without abdominal pain. Back pain somewhat worse with vomiting with some radiation to the left lower extremity. No incontinence, no fever, no chills, no unusual weakness. Patient consulted ER for worsening symptoms. Medical History as above Surgical History : section, hysterectomy, back surgeries, partial hysterectomy, cholecystectomy Family History : DM Personal/Social history : Vape use, no EtOH intake, [employer] employee Admission Exam Per Admitting Provider GENERAL: Slightly uncomfortable, pleasant, no respiratory distress SKIN: Normal color, warm HEENT: [place] palpebral conjunctivae, no ptosis, dry buccal mucosa NECK : Supple, no tenderness CHEST : CTA, no tenderness HEART : RRR, no obvious murmurs ABDOMEN: Some distention, nontender BACK : Low back tenderness EXTREMITIES : No LE swelling/tenderness, no other conspicuous deformities noted NEUROLOGIC : Coherent, no facial asymmetry, no other gross focality Principal Diagnosis Obstipation Post op ileus Discharge Exam Constitutional + well hydrated; no acute distress Eyes PERRL, conjunctivae normal, anicteric sclerae ENMT external ear and nose normal, oropharynx normal Respiratory normal respiratory effort, lungs clear to auscultation Cardiovascular Rate/Rhythm: regular rate and regular rhythm S1 S2 Gastrointestinal (Abdomen) normal bowel sounds, soft, nontender, no hepatosplenomegaly Musculoskeletal No pedal edema Neurologic PERRL, EOMI, accommodation nl, no face palsy, no dysarthria Psychiatric A+Ox3, euthymic affect Discharge Data Allergies Allergy/AdvReac Type Severity Reaction Status Date / Time betamethasone Allergy Redness of Verified 09/26/22 22:58 Skin Consultations 09/27/22 00:00 Consult Orthopedic Surgery Routine Hospital Course (1) Obstipation: 1 week history of symptoms preceding recent lumbar decompression surgery Post op ileus likely complicated by opioid induced constipation This has resolved with bowel regimen. Reported 4 bowel movements since admission last night Patient counseled on appropriate use of stool softeners She stated she has miralax and senokot at home and will not need a script Hypertension, stable, not on maintenance meds GERD on PPI DM 2 on oral medications, suboptimal control as of recent hemoglobin A1c of 8.5 this month Total Time Total Time Spent Total Time Spent (In Minutes): 35 Total Time Includes: Examination of the Patient, Discharge Planning and Medication Reconciliation Discharge Plan Discharge Items Patient Disposition: Home - Self-Care Reason For Visit: VOMITING, CONSTIPATION Discharge Diagnosis: Constipation Post op ileus Condition on Discharge: Good Activity: Resume your previous activity Non-emergency contact: Primary Care Provider Call non-emergency contact if: you have any medication questions and your symptoms worsen Follow-up/Referrals: Radha Wheat MD [Primary Care Provider] - Diet: Carb Consistent or DM2 and Heart Healthy Addtl Attending Provider Instructions: Mrs Church. Mayes came back to the hospital for constipation after your recent surgery. This was managed with stool softeners Please ensure you take the stool softeners as we discussed. It was a pleasure taking care of you. Pending Studies at Discharge: No Stand-Alone Forms: My [facility] [employer], Pain - Opioid Pain Management, Smoking Cessation Medications and DC Order Prescriptions: New polyethylene glycol 3350 [Miralax] 17 gram Powder In Packet 17 g PO DAILY PRN (Reason: Constipation) Qty: 14 0RF sennosides-docusate sodium [Senokot-S] 8.6-50 mg Tablet 2 tab PO BID Qty: 14 0RF ondansetron 4 mg tablet,disintegrating 4 mg PO BID PRN (Reason: nausea and vomiting) Qty: 10 0RF Continued atorvastatin 40 mg tablet 40 mg PO DAILY ibuprofen 800 mg Tablet 800 mg PO DAILY PRN (Reason: Pain) Rx Instructions: Patient stated she takes along with Oxycodone-apap 5-325 gabapentin 400 mg capsule 400 mg PO TID esomeprazole magnesium 40 mg capsule,delayed release(DR/EC) 40 mg PO DAILY metformin 500 mg tablet extended release 24 hr 500 mg PO QAM cyclobenzaprine 5 mg tablet See Rx Instructions .ROUTE .COMPLEX Rx Instructions: Take 1 tablet by mouth at bedtime if needed for muscle spasms. Patient stated she took 2 tablets at the same time yesterday. Ozempic 1 mg/dose (4 mg/3 mL) pen injector 1 mg SUBCUT WK Rx Instructions: Every Thursday oxycodone 5 mg tablet 5 mg PO Q6H PRN (Reason: pain) Qty: 30 0RF acetaminophen [Tylenol Extra Strength] 500 mg Tablet 1,000 mg PO Q6H PRN (Reason: Pain) Discontinued tramadol 50 mg tablet 50 mg PO Q6H PRN (Reason: pain, moderate) Qty: 30 0RF Discharge Orders: Discharge Order (Routine); Ordered 09/27/22 Ordered By: Margaret Constantino/Other Patient Handouts: ED Constipation (Adult) Admission Data Admit Date/Time: 09/26/22 23:57 Attending Provider: Margaret Enriquez I. Admit Provider: Mike Frank Primary Care Provider: Radha Wheat Other Providers: Anton Lopez Other Interventions: Discharge Summary Assessment (RN) Last Done: 09/27/22 13:02
[2022-09-28] MEDS ORDERED: POLYETHYLENE (MIRALAX) 17 GM PACK PO SCH (09:00)
== END 2022-09-27 13:32 | disposition home or self-care (01) ==
LOC: ED 19:14 → 3N 19:14